=== PATIENT | female | born 1945 | race Caucasian/White ===

== ENCOUNTER 2017-08-21 19:05 | Inpatient (IN) | payer MEDICARE, MEDICAID ==
[~2017-08-21] VITALS: Ht 175.3 cm; Wt 85.7 kg
[2017-08-21] MEDS ORDERED: LOPE-155 PO (19:27)
[2017-08-21] MEDS ORDERED: LANTUS SQ (19:27)
[2017-08-21] MEDS ORDERED: METF500T PO (19:27)
[2017-08-21] MEDS ORDERED: GABA-530 PO (19:27)
[2017-08-21] MEDS ORDERED: CALC500T11 PO (19:27)
[2017-08-21] MEDS ORDERED: CARV-50 PO (19:27)
[2017-08-21] MEDS ORDERED: ATOR20TA PO (19:27)
[2017-08-21] MEDS ORDERED: ASPI-1265 PO (19:27)
[2017-08-21] MEDS ORDERED: FERR325T28 PO (19:27)
[2017-08-21 19:42] LABS: BASOPHILS % (AUTO) 0 % (0-1); EOSINOPHILS % (AUTO) 0 % (0-6); HEMATOCRIT 24.4 % (35.0-45.0); HEMOGLOBIN 8.3 g/dl (12.0-16.0); LYMPHOCYTES # (AUTO) 1.1 X10'3 (1.1-4.8); LYMPHOCYTES % (AUTO) 6.7 % (21-51); MEAN CORPUSCULAR HEMOGLOBIN 29.6 PG (27.0-31.0); MEAN CORPUSCULAR VOLUME 87.1 FL (78-98); MEAN PLATELET VOLUME 8.9 FL (7.4-10.4); MONOCYTES # (AUTO) 0.8 X10'3 (0-0.9); MONOCYTES % (AUTO) 5.1 % (2-12); NEUTROPHILS % (AUTO) 88.2 % (42-75); PLATELET COUNT 175 X10'3 (140-440); RED CELL DISTRIBUTION WIDTH 15.2 % (11.5-14.5); WHITE BLOOD COUNT 15.8 X10'3 (4.5-11.0)
[2017-08-21] MEDS ORDERED: ondansetron/PF 4mg/2ml inj IV PRN (19:50)
[2017-08-21] MEDS ORDERED: K, MAG and/or Phos replacement - Verify level? MC PRN (19:50)
[2017-08-21] MEDS ORDERED: acetaminophen 325mg tablet PO PRN ×2 (19:50)
[2017-08-21 20:01] LABS: INR 1.2 INR; PROTHROMBIN TIME 12.7 SECONDS (9.0-12.0)
[2017-08-21 20:04] LABS: ALANINE AMINOTRANSFERASE 298 U/L (12-78); ALBUMIN 3.3 G/DL (3.4-5.0); ALBUMIN/GLOBULIN RATIO 1.1 (1.1-1.5); ALKALINE PHOSPHATASE 52 IU/L (46-116); ANION GAP 18 (8-16); ASPARTATE AMINO TRANSFERASE 205 U/L (10-37); BILIRUBIN,TOTAL 1.6 MG/DL (0.1-1.0); BLOOD UREA NITROGEN 112 MG/DL (7-18); BUN/CREATININE RATIO 36.2 (6.6-38.0); CALCIUM 8.9 MG/DL (8.5-10.1); CHLORIDE 106 MMOL/L (99-107); CREATININE 3.09 MG/DL (0.40-0.90); MAGNESIUM 1.9 MG/DL (1.5-2.4); POTASSIUM 4.6 MMOL/L (3.5-5.1); SODIUM 143 MMOL/L (135-145); TOTAL CARBON DIOXIDE 19.5 MMOL/L (24-32); TOTAL PROTEIN 6.4 G/DL (6.4-8.2); eGFR 15 ML/MIN
[2017-08-21 20:07] LABS: GLUCOSE 500 MG/DL (70-104)
[2017-08-21 20:10] LABS: PARTIAL THROMBOPLASTIN TIME 83 SECONDS (22-32)
[2017-08-21] MEDS ORDERED: MESSAGE TO PHARMACY PO ONE (20:20)
[2017-08-21] MEDS ORDERED: glucagon, human recombinant 1mg kit SUBCUT PRN (20:20)
[2017-08-21] MEDS ORDERED: dextrose ORAL solution 15 GM/59 ML bottle PO PRN (20:20)
[2017-08-21] MEDS ORDERED: dextrose 50%-water 50ml dispensing syringe IV PRN ×3 (20:20→22:40)
[2017-08-21 21:00] VITALS: BP 126/45
[2017-08-21] MEDS: insulin glargine (Lantus) pen - multi-dose SQ SCH (21:00)
[2017-08-21] MEDS ORDERED: insulin glargine (Lantus) pen - multi-dose SQ SCH (21:00)
[2017-08-21 21:45] LABS: D-DIMER 7.37 MG/L FEU (0-0.50)
[2017-08-21 22:00] VITALS: BP 118/59
[2017-08-21] MEDS: atorvastatin 20mg tablet PO SCH (22:07)
[2017-08-21] MEDS ORDERED: insulin regular, human 100 UNIT in normal saline 100ml IV soln 99 ML IV SCH ×2 (22:40)
[2017-08-21 22:50] LABS: HEMOGLOBIN A1C 7.1 % (4.5-6.2)
[2017-08-21 23:00] VITALS: BP 117/65
[2017-08-21] MEDS ORDERED: insulin R INFUSION 1 ML IV ONE (23:19)
[2017-08-21] MEDS: gabapentin 100mg capsule PO SCH (23:43)
[2017-08-22] VITALS (26 sets, daily range): BP systolic 94–135; BP diastolic 48–70
[2017-08-22] MEDS ORDERED: insulin regular, human vial - multi-dose ONE (02:26)
[2017-08-22] MEDS: insulin Lispro (HumaLOG) vial - multi-dose SQ SCH ×3 (02:41→21:41)
[2017-08-22 02:42] LABS: BASOPHILS % (AUTO) 0.3 % (0-1); EOSINOPHILS % (AUTO) 0 % (0-6); HEMOGLOBIN 7.9 g/dl (12.0-16.0); LYMPHOCYTES # (AUTO) 0.9 X10'3 (1.1-4.8); LYMPHOCYTES % (AUTO) 7.6 % (21-51); MEAN CORPUSCULAR HEMOGLOBIN 29.6 PG (27.0-31.0); MEAN CORPUSCULAR HGB CONC 34.2 % (33.0-36.5); MEAN CORPUSCULAR VOLUME 86.8 FL (78-98); MEAN PLATELET VOLUME 8.6 FL (7.4-10.4); MONOCYTES # (AUTO) 0.7 X10'3 (0-0.9); MONOCYTES % (AUTO) 5.9 % (2-12); NEUTROPHILS # (AUTO) 10.7 X10'3 (1.8-7.7); NEUTROPHILS % (AUTO) 86.2 % (42-75); PLATELET COUNT 168 X10'3 (140-440); RED BLOOD COUNT 2.66 X10'6 (4.20-5.60); RED CELL DISTRIBUTION WIDTH 15.3 % (11.5-14.5); WHITE BLOOD COUNT 12.5 X10'3 (4.5-11.0)
[2017-08-22 03:09] LABS: INR 1.2 INR; PARTIAL THROMBOPLASTIN TIME 27 SECONDS (22-32); PROTHROMBIN TIME 12.4 SECONDS (9.0-12.0)
[2017-08-22 03:21] LABS: ALANINE AMINOTRANSFERASE 250 U/L (12-78); ALKALINE PHOSPHATASE 50 IU/L (46-116); ANION GAP 11 (8-16); ASPARTATE AMINO TRANSFERASE 123 U/L (10-37); BILIRUBIN,TOTAL 1.3 MG/DL (0.1-1.0); BLOOD UREA NITROGEN 112 MG/DL (7-18); BUN/CREATININE RATIO 38.6 (6.6-38.0); CHLORIDE 110 MMOL/L (99-107); GLUCOSE 345 MG/DL (70-104); PHOSPHORUS 4.8 MG/DL (2.3-4.5); POTASSIUM 3.8 MMOL/L (3.5-5.1); SODIUM 144 MMOL/L (135-145); TOTAL CARBON DIOXIDE 23.4 MMOL/L (24-32); eGFR 16 ML/MIN
[2017-08-22] MEDS: gabapentin 100mg capsule PO SCH ×2 (08:09→16:46)
[2017-08-22] MEDS: carvedilol 6.25mg tablet PO SCH ×2 (08:09→20:56)
[2017-08-22] MEDS: aspirin 81mg tab.chew PO SCH (08:09)
[2017-08-22] MEDS: ferrous sulfate 325mg tablet PO SCH ×2 (08:09→20:57)
[2017-08-22 08:40] LABS: % IRON SATURATION 24 % (11-46); IRON 46 UG/DL (49-151); TOTAL IRON BINDING CAPACITY 192 UG/DL (259-388)
[2017-08-22] MEDS ORDERED: levoFLOXACIN-Levaquin 250mg/D5 50 ML IV SCH (11:05)
[2017-08-22] MEDS: CefTRIAXone 2gm/D5W 50ml 50 ML IV SCH (11:15)
[2017-08-22 11:31] LABS: ABG HCO3 21.9 mmol/L (22.0-26.0); ABG OXYGEN SATURATION 90.4 % (95-98); ABG PCO2 (T) 33.5 mmHg (32.0-45.0); ABG PH (T) 7.433 (7.350-7.450); ABG PO2 (T) 57.9 mmHg (83-108); ALLEN'S TEST Positive; FCOHb 0.3 % (0.5-1.5); FMetHb 0.3 % (0.3-1.12); FO2Hb 89.9 % (94-100); PATIENT TEMPERATURE 36.7; TOTAL HEMOGLOBIN 8.8 G/dl (12.0-16.0)
[2017-08-22 12:51] LABS: COLOR,URINE YELLOW (Yellow); GLUCOSE, URINE NEGATIVE (Neg); KETONES,URINE NEGATIVE (Neg); LEUKOCYTE ESTERASE ,URINE MODERATE (Neg); NITRITES, URINE NEGATIVE (Neg); OCCULT BLOOD,URINE SMALL (Neg); PH,URINE 5.5 (4.8-8.0); PROTEIN,URINE 30 mg/dl (Neg); UROBILINOGEN,URINE 0.2 E.U/dL (0.2-1.0)
[2017-08-22 12:57] LABS: CLARITY,URINE CLOUDY (Clear); UA COLLECTION TYPE STRAIGHT CATH
[2017-08-22 12:58] LABS: TOTAL PROTEIN,URINE RANDOM 37.3 MG/DL
[2017-08-22 12:59] LABS: AMORPHOUS URATES 1+; BACTERIA,URINE 3+ /HPF (Neg); RBC,URINE 0-2 /HPF (0-2); SQUAMOUS EPITHELIAL CELL,UR FEW /LPF (FEW); TRANSITIONAL EPI CELLS,URINE FEW /HPF; WBC CLUMPS,URINE MODERATE /HPF (NEGATIVE)
[2017-08-22] MEDS: atorvastatin 20mg tablet PO SCH (20:56)
[2017-08-22] MEDS: heparin, porcine 5000 units/ml vial SQ SCH (20:57)
[2017-08-22] MEDS: insulin glargine (Lantus) pen - multi-dose SQ SCH (21:42)
[2017-08-23] VITALS (24 sets, daily range): BP systolic 103–142; BP diastolic 50–72
[2017-08-23 05:56] LABS: BASOPHILS % (AUTO) 0.4 % (0-1); EOSINOPHILS # (AUTO) 0.3 X10'3 (0-0.9); EOSINOPHILS % (AUTO) 2.9 % (0-6); HEMATOCRIT 27.4 % (35.0-45.0); HEMOGLOBIN 8.9 g/dl (12.0-16.0); MEAN CORPUSCULAR HEMOGLOBIN 27.8 PG (27.0-31.0); MEAN CORPUSCULAR HGB CONC 32.6 % (33.0-36.5); MEAN CORPUSCULAR VOLUME 85.3 FL (78-98); MEAN PLATELET VOLUME 8.3 FL (7.4-10.4); MONOCYTES # (AUTO) 0.6 X10'3 (0-0.9); MONOCYTES % (AUTO) 5.9 % (2-12); NEUTROPHILS # (AUTO) 8.4 X10'3 (1.8-7.7); NEUTROPHILS % (AUTO) 80.8 % (42-75); PLATELET COUNT 179 X10'3 (140-440); RED BLOOD COUNT 3.21 X10'6 (4.20-5.60); RED CELL DISTRIBUTION WIDTH 17.2 % (11.5-14.5); WHITE BLOOD COUNT 10.4 X10'3 (4.5-11.0)
[2017-08-23 06:29] LABS: ALANINE AMINOTRANSFERASE 247 U/L (12-78); ALBUMIN 2.7 G/DL (3.4-5.0); ALKALINE PHOSPHATASE 44 IU/L (46-116); ANION GAP 8 (8-16); ASPARTATE AMINO TRANSFERASE 87 U/L (10-37); BILIRUBIN,TOTAL 1.7 MG/DL (0.1-1.0); BLOOD UREA NITROGEN 85 MG/DL (7-18); BUN/CREATININE RATIO 43.4 (6.6-38.0); CALCIUM 8.3 MG/DL (8.5-10.1); CHLORIDE 114 MMOL/L (99-107); CREATININE 1.96 MG/DL (0.40-0.90); GLUCOSE 156 MG/DL (70-104); MAGNESIUM 1.9 MG/DL (1.5-2.4); PHOSPHORUS 3.1 MG/DL (2.3-4.5); POTASSIUM 3.6 MMOL/L (3.5-5.1); SODIUM 148 MMOL/L (135-145); TOTAL CARBON DIOXIDE 25.7 MMOL/L (24-32); TOTAL PROTEIN 5.4 G/DL (6.4-8.2); eGFR 25 ML/MIN
[2017-08-23] MEDS: aspirin 81mg tab.chew PO SCH (07:46)
[2017-08-23] MEDS: heparin, porcine 5000 units/ml vial SQ SCH ×2 (07:46→19:57)
[2017-08-23] MEDS: carvedilol 6.25mg tablet PO SCH ×2 (07:46→20:01)
[2017-08-23] MEDS: gabapentin 100mg capsule PO SCH ×4 (07:46→23:43)
[2017-08-23] MEDS: ferrous sulfate 325mg tablet PO SCH ×2 (07:46→19:56)
[2017-08-23] MEDS: CefTRIAXone 2gm/D5W 50ml 50 ML IV SCH (07:47)
[2017-08-23] MEDS: insulin Lispro (HumaLOG) vial - multi-dose SQ SCH ×4 (09:25→20:54)
[2017-08-23 14:01] LABS: UREA NITROGEN 24HR,URINE 21.5 GM/24HR (7-20)
[2017-08-23 14:06] LABS: HEP A AB, IGM Negative (Negative); HEP B CORE AB, IGM Negative (Negative); HEPATITIS C ANTIBODY <0.1 s/co ratio (0.0-0.9)
[2017-08-23] MEDS: clopidogrel 75mg tablet PO SCH (14:24)
[2017-08-23] MEDS: lactobacillus rhamnosus 10,000 MMU CELLS/CAPSULE PO SCH (19:56)
[2017-08-23] MEDS: atorvastatin 20mg tablet PO SCH (20:47)
[2017-08-23] MEDS: insulin glargine (Lantus) pen - multi-dose SQ SCH (20:53)
[2017-08-24] VITALS (24 sets, daily range): BP systolic 101–136; BP diastolic 5–91
[2017-08-24 05:55] LABS: BASOPHILS % (AUTO) 0.2 % (0-1); EOSINOPHILS # (AUTO) 0.6 X10'3 (0-0.9); EOSINOPHILS % (AUTO) 6.4 % (0-6); HEMATOCRIT 28.4 % (35.0-45.0); HEMOGLOBIN 9.5 g/dl (12.0-16.0); LYMPHOCYTES # (AUTO) 1.3 X10'3 (1.1-4.8); LYMPHOCYTES % (AUTO) 13.4 % (21-51); MEAN CORPUSCULAR HEMOGLOBIN 28.5 PG (27.0-31.0); MEAN CORPUSCULAR HGB CONC 33.5 % (33.0-36.5); MEAN CORPUSCULAR VOLUME 84.9 FL (78-98); MEAN PLATELET VOLUME 8.6 FL (7.4-10.4); MONOCYTES # (AUTO) 0.6 X10'3 (0-0.9); MONOCYTES % (AUTO) 6.5 % (2-12); NEUTROPHILS # (AUTO) 7.3 X10'3 (1.8-7.7); NEUTROPHILS % (AUTO) 73.5 % (42-75); PLATELET COUNT 194 X10'3 (140-440); RED BLOOD COUNT 3.35 X10'6 (4.20-5.60); WHITE BLOOD COUNT 9.9 X10'3 (4.5-11.0)
[2017-08-24 06:48] LABS: ALANINE AMINOTRANSFERASE 193 U/L (12-78); ALBUMIN 2.7 G/DL (3.4-5.0); ALBUMIN/GLOBULIN RATIO 0.9 (1.1-1.5); ALKALINE PHOSPHATASE 47 IU/L (46-116); ANION GAP 11 (8-16); ASPARTATE AMINO TRANSFERASE 53 U/L (10-37); BILIRUBIN,TOTAL 1.3 MG/DL (0.1-1.0); BLOOD UREA NITROGEN 66 MG/DL (7-18); BUN/CREATININE RATIO 41.3 (6.6-38.0); CALCIUM 8.1 MG/DL (8.5-10.1); CHLORIDE 113 MMOL/L (99-107); GLUCOSE 104 MG/DL (70-104); MAGNESIUM 1.8 MG/DL (1.5-2.4); PHOSPHORUS 2.8 MG/DL (2.3-4.5); POTASSIUM 3.7 MMOL/L (3.5-5.1); SODIUM 149 MMOL/L (135-145); TOTAL CARBON DIOXIDE 24.7 MMOL/L (24-32); TOTAL PROTEIN 5.6 G/DL (6.4-8.2); eGFR 32 ML/MIN
[2017-08-24] MEDS: ferrous sulfate 325mg tablet PO SCH ×2 (07:53→20:53)
[2017-08-24] MEDS: aspirin 81mg tab.chew PO SCH (07:53)
[2017-08-24] MEDS: CefTRIAXone 2gm/D5W 50ml 50 ML IV SCH (07:53)
[2017-08-24] MEDS: gabapentin 100mg capsule PO SCH ×3 (07:53→23:30)
[2017-08-24] MEDS: carvedilol 6.25mg tablet PO SCH ×2 (07:53→20:52)
[2017-08-24] MEDS: clopidogrel 75mg tablet PO SCH (07:53)
[2017-08-24] MEDS: lactobacillus rhamnosus 10,000 MMU CELLS/CAPSULE PO SCH ×2 (07:53→20:52)
[2017-08-24] MEDS: heparin, porcine 5000 units/ml vial SQ SCH ×2 (07:54→20:53)
[2017-08-24] MEDS: insulin Lispro (HumaLOG) vial - multi-dose SQ SCH ×2 (08:39→13:09)
[2017-08-24] MEDS ORDERED: furosemide 20MG tablet PO ONE (09:05)
[2017-08-24] MEDS ORDERED: levoFLOXACIN 250mg tablet PO SCH ×2 (11:00)
[2017-08-24] MEDS: atorvastatin 20mg tablet PO SCH (20:53)
[2017-08-24] MEDS: insulin glargine (Lantus) pen - multi-dose SQ SCH (21:26)
[2017-08-25] VITALS (15 sets, daily range): BP systolic 101–135; BP diastolic 55–76
[2017-08-25 05:44] LABS: BASOPHILS % (AUTO) 0.3 % (0-1); EOSINOPHILS # (AUTO) 0.6 X10'3 (0-0.9); EOSINOPHILS % (AUTO) 6.6 % (0-6); HEMATOCRIT 28.4 % (35.0-45.0); HEMOGLOBIN 9.6 g/dl (12.0-16.0); LYMPHOCYTES # (AUTO) 1.3 X10'3 (1.1-4.8); LYMPHOCYTES % (AUTO) 14.9 % (21-51); MEAN CORPUSCULAR HEMOGLOBIN 28.4 PG (27.0-31.0); MEAN CORPUSCULAR HGB CONC 33.7 % (33.0-36.5); MEAN CORPUSCULAR VOLUME 84.4 FL (78-98); MEAN PLATELET VOLUME 8.2 FL (7.4-10.4); MONOCYTES # (AUTO) 0.8 X10'3 (0-0.9); NEUTROPHILS # (AUTO) 6.2 X10'3 (1.8-7.7); NEUTROPHILS % (AUTO) 69.2 % (42-75); PLATELET COUNT 185 X10'3 (140-440); RED BLOOD COUNT 3.37 X10'6 (4.20-5.60); RED CELL DISTRIBUTION WIDTH 16.4 % (11.5-14.5); WHITE BLOOD COUNT 8.9 X10'3 (4.5-11.0)
[2017-08-25 06:02] LABS: ALANINE AMINOTRANSFERASE 122 U/L (12-78); ALBUMIN 2.4 G/DL (3.4-5.0); ALBUMIN/GLOBULIN RATIO 0.9 (1.1-1.5); ALKALINE PHOSPHATASE 47 IU/L (46-116); ANION GAP 9 (8-16); ASPARTATE AMINO TRANSFERASE 27 U/L (10-37); BLOOD UREA NITROGEN 49 MG/DL (7-18); BUN/CREATININE RATIO 32.9 (6.6-38.0); CALCIUM 7.8 MG/DL (8.5-10.1); CHLORIDE 111 MMOL/L (99-107); CREATININE 1.49 MG/DL (0.40-0.90); GLUCOSE 186 MG/DL (70-104); MAGNESIUM 1.7 MG/DL (1.5-2.4); PHOSPHORUS 3.1 MG/DL (2.3-4.5); POTASSIUM 3.6 MMOL/L (3.5-5.1); SODIUM 146 MMOL/L (135-145); TOTAL CARBON DIOXIDE 26.1 MMOL/L (24-32); TOTAL PROTEIN 5.2 G/DL (6.4-8.2); eGFR 34 ML/MIN
[2017-08-25] MEDS: carvedilol 6.25mg tablet PO SCH ×2 (07:44→20:44)
[2017-08-25] MEDS: gabapentin 100mg capsule PO SCH ×2 (07:45→16:39)
[2017-08-25] MEDS: lactobacillus rhamnosus 10,000 MMU CELLS/CAPSULE PO SCH ×2 (07:45→20:45)
[2017-08-25] MEDS: CefTRIAXone 2gm/D5W 50ml 50 ML IV SCH (07:45)
[2017-08-25] MEDS: ferrous sulfate 325mg tablet PO SCH ×2 (07:45→20:45)
[2017-08-25] MEDS: clopidogrel 75mg tablet PO SCH (07:45)
[2017-08-25] MEDS: aspirin 81mg tab.chew PO SCH (07:45)
[2017-08-25] MEDS: heparin, porcine 5000 units/ml vial SQ SCH ×2 (07:46→20:45)
[2017-08-25] MEDS: insulin Lispro (HumaLOG) vial - multi-dose SQ SCH ×2 (08:35→13:33)
[2017-08-25] MEDS: cephalexin 500mg capsule PO SCH (16:39)
[2017-08-25] MEDS: dextrose ORAL solution 15 GM/59 ML bottle PO PRN (17:35)
[2017-08-25] MEDS: atorvastatin 20mg tablet PO SCH (22:04)
[2017-08-25] MEDS: insulin glargine (Lantus) pen - multi-dose SQ SCH (22:10)
[2017-08-26] MEDS: gabapentin 100mg capsule PO SCH ×3 (00:19→15:54)
[2017-08-26] MEDS: cephalexin 500mg capsule PO SCH ×3 (00:19→15:54)
[2017-08-26 02:00] VITALS: BP 149/73
[2017-08-26 05:45] LABS: BASOPHILS % (AUTO) 0.4 % (0-1); EOSINOPHILS # (AUTO) 0.5 X10'3 (0-0.9); EOSINOPHILS % (AUTO) 5.8 % (0-6); HEMATOCRIT 28.3 % (35.0-45.0); HEMOGLOBIN 9.4 g/dl (12.0-16.0); LYMPHOCYTES # (AUTO) 1.5 X10'3 (1.1-4.8); LYMPHOCYTES % (AUTO) 16.2 % (21-51); MEAN CORPUSCULAR HEMOGLOBIN 28.3 PG (27.0-31.0); MEAN CORPUSCULAR HGB CONC 33.4 % (33.0-36.5); MEAN CORPUSCULAR VOLUME 84.8 FL (78-98); MEAN PLATELET VOLUME 7.9 FL (7.4-10.4); MONOCYTES # (AUTO) 0.9 X10'3 (0-0.9); MONOCYTES % (AUTO) 9.5 % (2-12); NEUTROPHILS # (AUTO) 6.3 X10'3 (1.8-7.7); NEUTROPHILS % (AUTO) 68.1 % (42-75); PLATELET COUNT 176 X10'3 (140-440); RED BLOOD COUNT 3.34 X10'6 (4.20-5.60); RED CELL DISTRIBUTION WIDTH 16.1 % (11.5-14.5); WHITE BLOOD COUNT 9.3 X10'3 (4.5-11.0)
[2017-08-26 06:01] LABS: ALANINE AMINOTRANSFERASE 91 U/L (12-78); ALBUMIN 2.4 G/DL (3.4-5.0); ALBUMIN/GLOBULIN RATIO 0.8 (1.1-1.5); ALKALINE PHOSPHATASE 49 IU/L (46-116); ANION GAP 9 (8-16); ASPARTATE AMINO TRANSFERASE 19 U/L (10-37); BILIRUBIN,TOTAL 0.7 MG/DL (0.1-1.0); BLOOD UREA NITROGEN 41 MG/DL (7-18); BUN/CREATININE RATIO 29.1 (6.6-38.0); CALCIUM 8.2 MG/DL (8.5-10.1); CHLORIDE 110 MMOL/L (99-107); CREATININE 1.41 MG/DL (0.40-0.90); GLUCOSE 164 MG/DL (70-104); MAGNESIUM 1.8 MG/DL (1.5-2.4); PHOSPHORUS 3.2 MG/DL (2.3-4.5); POTASSIUM 3.8 MMOL/L (3.5-5.1); SODIUM 144 MMOL/L (135-145); TOTAL CARBON DIOXIDE 25.3 MMOL/L (24-32); TOTAL PROTEIN 5.4 G/DL (6.4-8.2); eGFR 37 ML/MIN
[2017-08-26 06:44] VITALS: BP 139/70
[2017-08-26] MEDS: clopidogrel 75mg tablet PO SCH (07:51)
[2017-08-26] MEDS: carvedilol 6.25mg tablet PO SCH ×2 (07:51→20:53)
[2017-08-26] MEDS: heparin, porcine 5000 units/ml vial SQ SCH ×2 (07:51→20:54)
[2017-08-26] MEDS: lactobacillus rhamnosus 10,000 MMU CELLS/CAPSULE PO SCH ×2 (07:51→20:53)
[2017-08-26] MEDS: ferrous sulfate 325mg tablet PO SCH ×2 (07:51→20:53)
[2017-08-26] MEDS: aspirin 81mg tab.chew PO SCH (07:51)
[2017-08-26] MEDS: insulin Lispro (HumaLOG) vial - multi-dose SQ SCH ×3 (07:59→19:15)
[2017-08-26 11:00] VITALS: BP 132/66
[2017-08-26 15:00] VITALS: BP 118/56
[2017-08-26 18:00] VITALS: BP 146/64
[2017-08-26] MEDS: sodium chloride 0.45% 1,000 ML IV SCH (20:20)
[2017-08-26] MEDS: atorvastatin 20mg tablet PO SCH (20:53)
[2017-08-26] MEDS: insulin glargine (Lantus) pen - multi-dose SQ SCH (21:18)
[2017-08-27] VITALS (10 sets, daily range): BP systolic 124–146; BP diastolic 52–70
[2017-08-27] MEDS: gabapentin 100mg capsule PO SCH ×3 (01:08→16:04)
[2017-08-27] MEDS: cephalexin 500mg capsule PO SCH ×3 (01:09→16:04)
[2017-08-27 05:24] LABS: BASOPHILS % (AUTO) 0.3 % (0-1); EOSINOPHILS # (AUTO) 0.5 X10'3 (0-0.9); EOSINOPHILS % (AUTO) 5.2 % (0-6); HEMATOCRIT 27.4 % (35.0-45.0); HEMOGLOBIN 9.2 g/dl (12.0-16.0); LYMPHOCYTES # (AUTO) 1.4 X10'3 (1.1-4.8); LYMPHOCYTES % (AUTO) 14.1 % (21-51); MEAN CORPUSCULAR HEMOGLOBIN 28.3 PG (27.0-31.0); MEAN CORPUSCULAR HGB CONC 33.7 % (33.0-36.5); MEAN CORPUSCULAR VOLUME 84.2 FL (78-98); MONOCYTES # (AUTO) 0.9 X10'3 (0-0.9); MONOCYTES % (AUTO) 9.2 % (2-12); NEUTROPHILS # (AUTO) 7.1 X10'3 (1.8-7.7); NEUTROPHILS % (AUTO) 71.2 % (42-75); PLATELET COUNT 180 X10'3 (140-440); RED BLOOD COUNT 3.25 X10'6 (4.20-5.60); RED CELL DISTRIBUTION WIDTH 16.3 % (11.5-14.5)
[2017-08-27 05:57] LABS: ALANINE AMINOTRANSFERASE 77 U/L (12-78); ALBUMIN 2.6 G/DL (3.4-5.0); ALBUMIN/GLOBULIN RATIO 0.9 (1.1-1.5); ALKALINE PHOSPHATASE 45 IU/L (46-116); ANION GAP 9 (8-16); ASPARTATE AMINO TRANSFERASE 23 U/L (10-37); BILIRUBIN,TOTAL 0.8 MG/DL (0.1-1.0); BLOOD UREA NITROGEN 37 MG/DL (7-18); BUN/CREATININE RATIO 26.1 (6.6-38.0); CALCIUM 8.3 MG/DL (8.5-10.1); CHLORIDE 109 MMOL/L (99-107); CREATININE 1.42 MG/DL (0.40-0.90); GLUCOSE 140 MG/DL (70-104); MAGNESIUM 1.7 MG/DL (1.5-2.4); PHOSPHORUS 3.4 MG/DL (2.3-4.5); POTASSIUM 3.7 MMOL/L (3.5-5.1); SODIUM 143 MMOL/L (135-145); TOTAL CARBON DIOXIDE 25.5 MMOL/L (24-32); TOTAL PROTEIN 5.4 G/DL (6.4-8.2); eGFR 36 ML/MIN
[2017-08-27] MEDS: lactobacillus rhamnosus 10,000 MMU CELLS/CAPSULE PO SCH ×2 (07:54→20:48)
[2017-08-27] MEDS: ferrous sulfate 325mg tablet PO SCH ×2 (07:54→20:48)
[2017-08-27] MEDS: carvedilol 6.25mg tablet PO SCH ×2 (07:54→20:48)
[2017-08-27] MEDS: sodium chloride 0.45% 1,000 ML IV SCH (07:58)
[2017-08-27] MEDS: heparin, porcine 5000 units/ml vial SQ SCH ×2 (08:00→20:47)
[2017-08-27] MEDS: aspirin 81mg tab.chew PO SCH (08:00)
[2017-08-27] MEDS: clopidogrel 75mg tablet PO SCH (08:00)
[2017-08-27] MEDS: insulin Lispro (HumaLOG) vial - multi-dose SQ SCH (10:42)
[2017-08-27] MEDS ORDERED: fentaNYL/PF 50MCG/1 ML 2ML syringe ONE (13:01)
[2017-08-27] MEDS ORDERED: LIDOcaine 1% w/EPI 1:100,000 30ml vial (MDV) ONE (13:01)
[2017-08-27] MEDS ORDERED: midazolam 2 mg/2 ml injection ONE (13:01)
[2017-08-27] MEDS ORDERED: iohexol 350 MG/ML 50ML vial IV ONE (13:02)
[2017-08-27] MEDS ORDERED: iohexol 350MG/ML 100ml bottle IV ONE (13:02)
[2017-08-27 14:21] LABS: ISTAT Hct MIX 24 %PCV (35-48); ISTAT O2 SATURATION MIX VENOUS 58 % (60-80); ISTAT SOURCE MIX
[2017-08-27 14:21] LABS: ISTAT HGB ART 7.8 g/dl (12.0-16.0); ISTAT Hct ART 23 %PCV (35-48); ISTAT O2 SATURATION ARTERIAL 90 % (95-98); ISTAT SOURCE ART
[2017-08-27] MEDS ORDERED: proCHLORperazine 10 MG/2 ml inj IV PRN (15:15)
[2017-08-27] MEDS ORDERED: nitroGLYCERIN 0.4mg SUBLingual tab SL PRN (15:15)
[2017-08-27] MEDS ORDERED: OXAZEpam 15mg capsule PO PRN (15:15)
[2017-08-27] MEDS ORDERED: sodium chloride 0.45% 1,000 ML IV ONE (15:15)
[2017-08-27 17:46] LABS: BASOPHILS % (AUTO) 0.3 % (0-1); EOSINOPHILS # (AUTO) 0.5 X10'3 (0-0.9); EOSINOPHILS % (AUTO) 4.4 % (0-6); HEMATOCRIT 31.4 % (35.0-45.0); HEMOGLOBIN 10.5 g/dl (12.0-16.0); LYMPHOCYTES # (AUTO) 1.1 X10'3 (1.1-4.8); LYMPHOCYTES % (AUTO) 10.1 % (21-51); MEAN CORPUSCULAR HEMOGLOBIN 28.3 PG (27.0-31.0); MEAN CORPUSCULAR HGB CONC 33.5 % (33.0-36.5); MEAN CORPUSCULAR VOLUME 84.6 FL (78-98); MEAN PLATELET VOLUME 7.6 FL (7.4-10.4); MONOCYTES # (AUTO) 0.7 X10'3 (0-0.9); MONOCYTES % (AUTO) 6.9 % (2-12); NEUTROPHILS # (AUTO) 8.4 X10'3 (1.8-7.7); NEUTROPHILS % (AUTO) 78.3 % (42-75); PLATELET COUNT 222 X10'3 (140-440); RED BLOOD COUNT 3.71 X10'6 (4.20-5.60); RED CELL DISTRIBUTION WIDTH 16.6 % (11.5-14.5); WHITE BLOOD COUNT 10.7 X10'3 (4.5-11.0)
[2017-08-27] MEDS: atorvastatin 20mg tablet PO SCH (20:49)
[2017-08-27] MEDS: insulin glargine (Lantus) pen - multi-dose SQ SCH (22:02)
[2017-08-28] MEDS: gabapentin 100mg capsule PO SCH ×4 (00:41→23:28)
[2017-08-28] MEDS: cephalexin 500mg capsule PO SCH ×4 (00:41→23:28)
[2017-08-28 02:00] VITALS: BP 137/65
[2017-08-28 06:00] VITALS: BP 137/68
[2017-08-28 06:06] LABS: BASOPHILS % (AUTO) 0.4 % (0-1); EOSINOPHILS # (AUTO) 0.4 X10'3 (0-0.9); EOSINOPHILS % (AUTO) 4.3 % (0-6); HEMATOCRIT 26.9 % (35.0-45.0); LYMPHOCYTES # (AUTO) 1.2 X10'3 (1.1-4.8); LYMPHOCYTES % (AUTO) 13.2 % (21-51); MEAN CORPUSCULAR HEMOGLOBIN 28.4 PG (27.0-31.0); MEAN CORPUSCULAR HGB CONC 33.6 % (33.0-36.5); MEAN CORPUSCULAR VOLUME 84.5 FL (78-98); MEAN PLATELET VOLUME 7.6 FL (7.4-10.4); MONOCYTES # (AUTO) 0.7 X10'3 (0-0.9); MONOCYTES % (AUTO) 7.8 % (2-12); NEUTROPHILS # (AUTO) 6.8 X10'3 (1.8-7.7); NEUTROPHILS % (AUTO) 74.3 % (42-75); PLATELET COUNT 195 X10'3 (140-440); RED BLOOD COUNT 3.18 X10'6 (4.20-5.60); WHITE BLOOD COUNT 9.2 X10'3 (4.5-11.0)
[2017-08-28 06:26] LABS: ALANINE AMINOTRANSFERASE 76 U/L (12-78); ALBUMIN 2.5 G/DL (3.4-5.0); ALKALINE PHOSPHATASE 49 IU/L (46-116); ANION GAP 8 (8-16); ASPARTATE AMINO TRANSFERASE 32 U/L (10-37); BLOOD UREA NITROGEN 31 MG/DL (7-18); BUN/CREATININE RATIO 22.6 (6.6-38.0); CALCIUM 8.1 MG/DL (8.5-10.1); CHLORIDE 108 MMOL/L (99-107); CREATININE 1.37 MG/DL (0.40-0.90); GLUCOSE 116 MG/DL (70-104); MAGNESIUM 1.7 MG/DL (1.5-2.4); PHOSPHORUS 3.9 MG/DL (2.3-4.5); POTASSIUM 3.6 MMOL/L (3.5-5.1); SODIUM 142 MMOL/L (135-145); TOTAL CARBON DIOXIDE 25.9 MMOL/L (24-32); TOTAL PROTEIN 5.1 G/DL (6.4-8.2); eGFR 38 ML/MIN
[2017-08-28] MEDS: ferrous sulfate 325mg tablet PO SCH ×2 (07:07→19:58)
[2017-08-28] MEDS: lactobacillus rhamnosus 10,000 MMU CELLS/CAPSULE PO SCH ×2 (07:08→19:58)
[2017-08-28] MEDS: carvedilol 6.25mg tablet PO SCH ×2 (07:08→20:03)
[2017-08-28] MEDS: aspirin 81mg tab.chew PO SCH (07:08)
[2017-08-28] MEDS: heparin, porcine 5000 units/ml vial SQ SCH ×2 (07:09→19:59)
[2017-08-28] MEDS: insulin Lispro (HumaLOG) vial - multi-dose SQ SCH ×3 (09:25→18:45)
[2017-08-28] MEDS: sodium chloride 0.45% 1,000 ML IV SCH (09:40)
[2017-08-28 11:00] VITALS: BP 124/67
[2017-08-28 15:00] VITALS: BP 119/62
[2017-08-28 18:00] VITALS: BP 138/88
[2017-08-28] MEDS: atorvastatin 20mg tablet PO SCH (19:58)
[2017-08-28 22:00] VITALS: BP 119/61
[2017-08-28] MEDS: insulin glargine (Lantus) pen - multi-dose SQ SCH (23:34)
[2017-08-29] VITALS (7 sets, daily range): BP systolic 105–130; BP diastolic 53–100
[2017-08-29 05:44] LABS: BASOPHILS % (AUTO) 0.5 % (0-1); EOSINOPHILS # (AUTO) 0.6 X10'3 (0-0.9); EOSINOPHILS % (AUTO) 7.2 % (0-6); HEMATOCRIT 24.7 % (35.0-45.0); HEMOGLOBIN 8.2 g/dl (12.0-16.0); LYMPHOCYTES # (AUTO) 1.5 X10'3 (1.1-4.8); MEAN CORPUSCULAR HGB CONC 33.3 % (33.0-36.5); MEAN CORPUSCULAR VOLUME 83.9 FL (78-98); MEAN PLATELET VOLUME 8.1 FL (7.4-10.4); MONOCYTES # (AUTO) 0.9 X10'3 (0-0.9); MONOCYTES % (AUTO) 11.3 % (2-12); PLATELET COUNT 174 X10'3 (140-440); RED BLOOD COUNT 2.94 X10'6 (4.20-5.60); RED CELL DISTRIBUTION WIDTH 16.1 % (11.5-14.5); WHITE BLOOD COUNT 8.1 X10'3 (4.5-11.0)
[2017-08-29 06:13] LABS: ALANINE AMINOTRANSFERASE 64 U/L (12-78); ALBUMIN 2.5 G/DL (3.4-5.0); ALBUMIN/GLOBULIN RATIO 0.9 (1.1-1.5); ALKALINE PHOSPHATASE 47 IU/L (46-116); ANION GAP 6 (8-16); ASPARTATE AMINO TRANSFERASE 36 U/L (10-37); BILIRUBIN,TOTAL 0.7 MG/DL (0.1-1.0); BLOOD UREA NITROGEN 36 MG/DL (7-18); BUN/CREATININE RATIO 23.2 (6.6-38.0); CALCIUM 8.2 MG/DL (8.5-10.1); CHLORIDE 110 MMOL/L (99-107); CREATININE 1.55 MG/DL (0.40-0.90); GLUCOSE 65 MG/DL (70-104); MAGNESIUM 1.9 MG/DL (1.5-2.4); PHOSPHORUS 4.2 MG/DL (2.3-4.5); POTASSIUM 3.9 MMOL/L (3.5-5.1); SODIUM 143 MMOL/L (135-145); TOTAL CARBON DIOXIDE 27.4 MMOL/L (24-32); TOTAL PROTEIN 5.3 G/DL (6.4-8.2); eGFR 33 ML/MIN
[2017-08-29] MEDS: lactobacillus rhamnosus 10,000 MMU CELLS/CAPSULE PO SCH ×2 (07:09→19:48)
[2017-08-29] MEDS: gabapentin 100mg capsule PO SCH ×2 (07:09→15:27)
[2017-08-29] MEDS: ferrous sulfate 325mg tablet PO SCH ×2 (07:09→19:48)
[2017-08-29] MEDS: aspirin 81mg tab.chew PO SCH (07:09)
[2017-08-29] MEDS: carvedilol 6.25mg tablet PO SCH ×2 (07:09→19:48)
[2017-08-29] MEDS: heparin, porcine 5000 units/ml vial SQ SCH ×2 (07:10→19:48)
[2017-08-29] MEDS: cephalexin 500mg capsule PO SCH ×2 (07:57→15:27)
[2017-08-29] MEDS: magnesium hydroxide 30ml (MOM) UD suspension PO PRN (11:47)
[2017-08-29] MEDS: insulin Lispro (HumaLOG) vial - multi-dose SQ SCH ×2 (13:05→20:16)
[2017-08-29] MEDS: atorvastatin 20mg tablet PO SCH (19:48)
[2017-08-29] MEDS: insulin glargine (Lantus) pen - multi-dose SQ SCH (21:00)
[2017-08-30] MEDS: gabapentin 100mg capsule PO SCH ×3 (00:21→15:46)
[2017-08-30] MEDS: cephalexin 500mg capsule PO SCH ×2 (00:21→07:50)
[2017-08-30 03:00] VITALS: BP 108/53
[2017-08-30 06:00] VITALS: BP 136/69
[2017-08-30 06:18] LABS: BASOPHILS # (AUTO) 0.1 X10'3 (0-0.2); BASOPHILS % (AUTO) 0.8 % (0-1); EOSINOPHILS # (AUTO) 0.5 X10'3 (0-0.9); EOSINOPHILS % (AUTO) 6.8 % (0-6); HEMATOCRIT 24.9 % (35.0-45.0); HEMOGLOBIN 8.5 g/dl (12.0-16.0); LYMPHOCYTES # (AUTO) 1.5 X10'3 (1.1-4.8); LYMPHOCYTES % (AUTO) 21.6 % (21-51); MEAN CORPUSCULAR HEMOGLOBIN 28.4 PG (27.0-31.0); MEAN CORPUSCULAR VOLUME 83.6 FL (78-98); MEAN PLATELET VOLUME 7.9 FL (7.4-10.4); MONOCYTES # (AUTO) 0.7 X10'3 (0-0.9); MONOCYTES % (AUTO) 10.2 % (2-12); NEUTROPHILS # (AUTO) 4.2 X10'3 (1.8-7.7); NEUTROPHILS % (AUTO) 60.6 % (42-75); PLATELET COUNT 184 X10'3 (140-440); RED BLOOD COUNT 2.98 X10'6 (4.20-5.60); WHITE BLOOD COUNT 6.9 X10'3 (4.5-11.0)
[2017-08-30 06:36] LABS: ALANINE AMINOTRANSFERASE 62 U/L (12-78); ALBUMIN 2.7 G/DL (3.4-5.0); ALKALINE PHOSPHATASE 45 IU/L (46-116); ANION GAP 7 (8-16); ASPARTATE AMINO TRANSFERASE 27 U/L (10-37); BILIRUBIN,TOTAL 0.7 MG/DL (0.1-1.0); BLOOD UREA NITROGEN 39 MG/DL (7-18); BUN/CREATININE RATIO 22.7 (6.6-38.0); CALCIUM 8.5 MG/DL (8.5-10.1); CHLORIDE 108 MMOL/L (99-107); CREATININE 1.72 MG/DL (0.40-0.90); GLUCOSE 123 MG/DL (70-104); SODIUM 142 MMOL/L (135-145); TOTAL CARBON DIOXIDE 27.1 MMOL/L (24-32); TOTAL PROTEIN 5.5 G/DL (6.4-8.2); eGFR 29 ML/MIN
[2017-08-30] MEDS: ferrous sulfate 325mg tablet PO SCH ×2 (07:50→21:00)
[2017-08-30] MEDS: aspirin 81mg tab.chew PO SCH (07:50)
[2017-08-30] MEDS: magnesium hydroxide 30ml (MOM) UD suspension PO PRN (07:50)
[2017-08-30] MEDS: lactobacillus rhamnosus 10,000 MMU CELLS/CAPSULE PO SCH ×2 (07:50→21:00)
[2017-08-30] MEDS: heparin, porcine 5000 units/ml vial SQ SCH ×2 (07:51→21:02)
[2017-08-30] MEDS: carvedilol 6.25mg tablet PO SCH ×2 (07:58→21:00)
[2017-08-30] MEDS: insulin Lispro (HumaLOG) vial - multi-dose SQ SCH ×3 (08:05→18:56)
[2017-08-30 11:00] VITALS: BP 116/60
[2017-08-30 15:00] VITALS: BP 123/64
[2017-08-30 18:00] VITALS: BP 115/67
[2017-08-30] MEDS: atorvastatin 20mg tablet PO SCH (21:00)
[2017-08-30 22:00] VITALS: BP 119/59
[2017-08-30] MEDS: insulin glargine (Lantus) pen - multi-dose SQ SCH (22:03)
[2017-08-31] MEDS: gabapentin 100mg capsule PO SCH ×3 (00:45→16:42)
[2017-08-31 02:00] VITALS: BP 122/59
[2017-08-31 05:18] LABS: BASOPHILS % (AUTO) 0.6 % (0-1); EOSINOPHILS # (AUTO) 0.4 X10'3 (0-0.9); HEMATOCRIT 24.2 % (35.0-45.0); HEMOGLOBIN 8.2 g/dl (12.0-16.0); LYMPHOCYTES # (AUTO) 1.3 X10'3 (1.1-4.8); LYMPHOCYTES % (AUTO) 20.2 % (21-51); MEAN CORPUSCULAR HEMOGLOBIN 28.5 PG (27.0-31.0); MEAN CORPUSCULAR HGB CONC 33.8 % (33.0-36.5); MEAN CORPUSCULAR VOLUME 84.3 FL (78-98); MONOCYTES # (AUTO) 0.6 X10'3 (0-0.9); MONOCYTES % (AUTO) 9.4 % (2-12); NEUTROPHILS # (AUTO) 4.1 X10'3 (1.8-7.7); NEUTROPHILS % (AUTO) 63.8 % (42-75); PLATELET COUNT 191 X10'3 (140-440); RED BLOOD COUNT 2.87 X10'6 (4.20-5.60); RED CELL DISTRIBUTION WIDTH 15.7 % (11.5-14.5); WHITE BLOOD COUNT 6.4 X10'3 (4.5-11.0)
[2017-08-31 05:39] LABS: ALANINE AMINOTRANSFERASE 72 U/L (12-78); ALBUMIN 2.8 G/DL (3.4-5.0); ALKALINE PHOSPHATASE 52 IU/L (46-116); ANION GAP 4 (8-16); ASPARTATE AMINO TRANSFERASE 37 U/L (10-37); BILIRUBIN,TOTAL 0.7 MG/DL (0.1-1.0); BLOOD UREA NITROGEN 42 MG/DL (7-18); BUN/CREATININE RATIO 26.9 (6.6-38.0); CALCIUM 8.8 MG/DL (8.5-10.1); CHLORIDE 109 MMOL/L (99-107); CREATININE 1.56 MG/DL (0.40-0.90); GLUCOSE 81 MG/DL (70-104); MAGNESIUM 2.2 MG/DL (1.5-2.4); PHOSPHORUS 4.2 MG/DL (2.3-4.5); POTASSIUM 4.3 MMOL/L (3.5-5.1); SODIUM 141 MMOL/L (135-145); TOTAL CARBON DIOXIDE 27.7 MMOL/L (24-32); TOTAL PROTEIN 5.6 G/DL (6.4-8.2); eGFR 33 ML/MIN
[2017-08-31 06:00] VITALS: BP 130/67
[2017-08-31] MEDS: heparin, porcine 5000 units/ml vial SQ SCH ×2 (07:24→20:45)
[2017-08-31] MEDS: carvedilol 6.25mg tablet PO SCH ×2 (07:24→20:43)
[2017-08-31] MEDS: ferrous sulfate 325mg tablet PO SCH ×2 (07:24→20:43)
[2017-08-31] MEDS: lactobacillus rhamnosus 10,000 MMU CELLS/CAPSULE PO SCH ×2 (07:24→20:42)
[2017-08-31] MEDS: aspirin 81mg tab.chew PO SCH (07:24)
[2017-08-31 11:00] VITALS: BP 110/71
[2017-08-31 15:00] VITALS: BP 128/63
[2017-08-31 19:00] VITALS: BP 109/59
[2017-08-31] MEDS: insulin Lispro (HumaLOG) vial - multi-dose SQ SCH (19:20)
[2017-08-31] MEDS: atorvastatin 20mg tablet PO SCH (20:43)
[2017-08-31] MEDS: insulin glargine (Lantus) pen - multi-dose SQ SCH (21:36)
[2017-08-31 23:00] VITALS: BP 133/71
[2017-09-01] MEDS: gabapentin 100mg capsule PO SCH ×3 (00:05→15:59)
[2017-09-01 03:00] VITALS: BP 117/63
[2017-09-01 05:30] VITALS: BP 138/69
[2017-09-01 06:01] LABS: BASOPHILS # (AUTO) 0.1 X10'3 (0-0.2); BASOPHILS % (AUTO) 0.7 % (0-1); EOSINOPHILS # (AUTO) 0.4 X10'3 (0-0.9); EOSINOPHILS % (AUTO) 4.1 % (0-6); HEMATOCRIT 29.4 % (35.0-45.0); HEMOGLOBIN 9.9 g/dl (12.0-16.0); LYMPHOCYTES # (AUTO) 1.1 X10'3 (1.1-4.8); LYMPHOCYTES % (AUTO) 11.9 % (21-51); MEAN CORPUSCULAR HEMOGLOBIN 28.6 PG (27.0-31.0); MEAN CORPUSCULAR HGB CONC 33.6 % (33.0-36.5); MEAN CORPUSCULAR VOLUME 85.3 FL (78-98); MEAN PLATELET VOLUME 9.2 FL (7.4-10.4); MONOCYTES # (AUTO) 0.4 X10'3 (0-0.9); MONOCYTES % (AUTO) 4.9 % (2-12); NEUTROPHILS % (AUTO) 78.4 % (42-75); PLATELET COUNT 232 X10'3 (140-440); RED BLOOD COUNT 3.45 X10'6 (4.20-5.60); RED CELL DISTRIBUTION WIDTH 16.1 % (11.5-14.5); WHITE BLOOD COUNT 8.9 X10'3 (4.5-11.0)
[2017-09-01 06:17] LABS: ALANINE AMINOTRANSFERASE 89 U/L (12-78); ALBUMIN 3.4 G/DL (3.4-5.0); ALKALINE PHOSPHATASE 62 IU/L (46-116); ANION GAP 5 (8-16); ASPARTATE AMINO TRANSFERASE 44 U/L (10-37); BILIRUBIN,TOTAL 0.9 MG/DL (0.1-1.0); BLOOD UREA NITROGEN 38 MG/DL (7-18); BUN/CREATININE RATIO 25.9 (6.6-38.0); CALCIUM 9.2 MG/DL (8.5-10.1); CHLORIDE 107 MMOL/L (99-107); CREATININE 1.47 MG/DL (0.40-0.90); GLUCOSE 65 MG/DL (70-104); MAGNESIUM 2.3 MG/DL (1.5-2.4); PHOSPHORUS 4.8 MG/DL (2.3-4.5); POTASSIUM 4.2 MMOL/L (3.5-5.1); SODIUM 139 MMOL/L (135-145); TOTAL CARBON DIOXIDE 26.6 MMOL/L (24-32); TOTAL PROTEIN 6.7 G/DL (6.4-8.2); eGFR 35 ML/MIN
[2017-09-01] MEDS: lactobacillus rhamnosus 10,000 MMU CELLS/CAPSULE PO SCH ×2 (08:51→20:50)
[2017-09-01] MEDS: carvedilol 6.25mg tablet PO SCH ×2 (08:51→20:50)
[2017-09-01] MEDS: ferrous sulfate 325mg tablet PO SCH ×2 (08:51→20:50)
[2017-09-01] MEDS: aspirin 81mg tab.chew PO SCH (08:51)
[2017-09-01] MEDS: heparin, porcine 5000 units/ml vial SQ SCH ×2 (08:51→20:50)
[2017-09-01] MEDS: insulin Lispro (HumaLOG) vial - multi-dose SQ SCH ×2 (10:11→14:14)
[2017-09-01 11:00] VITALS: BP 132/65
[2017-09-01 15:00] VITALS: BP 133/63
[2017-09-01] MEDS: dextrose ORAL solution 15 GM/59 ML bottle PO PRN (17:09)
[2017-09-01 19:00] VITALS: BP 145/62
[2017-09-01] MEDS: atorvastatin 20mg tablet PO SCH (20:51)
[2017-09-01] MEDS: insulin glargine (Lantus) pen - multi-dose SQ SCH (21:45)
[2017-09-01 23:00] VITALS: BP 126/61
[2017-09-02] MEDS: gabapentin 100mg capsule PO SCH ×3 (00:15→17:53)
[2017-09-02 03:00] VITALS: BP 127/66
[2017-09-02 05:17] LABS: BASOPHILS # (AUTO) 0.1 X10'3 (0-0.2); EOSINOPHILS # (AUTO) 0.5 X10'3 (0-0.9); EOSINOPHILS % (AUTO) 6.6 % (0-6); HEMATOCRIT 24.7 % (35.0-45.0); HEMOGLOBIN 8.3 g/dl (12.0-16.0); LYMPHOCYTES # (AUTO) 1.6 X10'3 (1.1-4.8); LYMPHOCYTES % (AUTO) 22.7 % (21-51); MEAN CORPUSCULAR HEMOGLOBIN 28.2 PG (27.0-31.0); MEAN CORPUSCULAR HGB CONC 33.4 % (33.0-36.5); MEAN CORPUSCULAR VOLUME 84.7 FL (78-98); MEAN PLATELET VOLUME 8.3 FL (7.4-10.4); MONOCYTES # (AUTO) 0.6 X10'3 (0-0.9); MONOCYTES % (AUTO) 8.5 % (2-12); NEUTROPHILS # (AUTO) 4.3 X10'3 (1.8-7.7); NEUTROPHILS % (AUTO) 61.2 % (42-75); PLATELET COUNT 223 X10'3 (140-440); RED BLOOD COUNT 2.92 X10'6 (4.20-5.60); RED CELL DISTRIBUTION WIDTH 16.1 % (11.5-14.5)
[2017-09-02 05:30] VITALS: BP 116/63
[2017-09-02 05:59] LABS: ALANINE AMINOTRANSFERASE 58 U/L (12-78); ALBUMIN 2.8 G/DL (3.4-5.0); ALKALINE PHOSPHATASE 55 IU/L (46-116); ANION GAP 7 (8-16); ASPARTATE AMINO TRANSFERASE 28 U/L (10-37); BILIRUBIN,TOTAL 0.8 MG/DL (0.1-1.0); BLOOD UREA NITROGEN 36 MG/DL (7-18); BUN/CREATININE RATIO 24.2 (6.6-38.0); CALCIUM 8.5 MG/DL (8.5-10.1); CHLORIDE 108 MMOL/L (99-107); CREATININE 1.49 MG/DL (0.40-0.90); GLUCOSE 82 MG/DL (70-104); MAGNESIUM 2.2 MG/DL (1.5-2.4); PHOSPHORUS 4.9 MG/DL (2.3-4.5); POTASSIUM 4.3 MMOL/L (3.5-5.1); SODIUM 142 MMOL/L (135-145); TOTAL CARBON DIOXIDE 27.1 MMOL/L (24-32); TOTAL PROTEIN 5.6 G/DL (6.4-8.2); eGFR 34 ML/MIN
[2017-09-02] MEDS: lactobacillus rhamnosus 10,000 MMU CELLS/CAPSULE PO SCH ×2 (07:44→20:29)
[2017-09-02] MEDS: carvedilol 6.25mg tablet PO SCH ×2 (07:44→20:29)
[2017-09-02] MEDS: aspirin 81mg tab.chew PO SCH (07:44)
[2017-09-02] MEDS: ferrous sulfate 325mg tablet PO SCH ×2 (07:44→20:29)
[2017-09-02] MEDS: heparin, porcine 5000 units/ml vial SQ SCH ×2 (07:48→20:28)
[2017-09-02] MEDS ORDERED: MESSAGE TO NURSING PO ONE ×4 (08:50→10:00)
[2017-09-02] MEDS: insulin Lispro (HumaLOG) vial - multi-dose SQ SCH ×3 (09:44→19:14)
[2017-09-02 11:00] VITALS: BP 127/61
[2017-09-02 14:10] LABS: ABG BASE EXCESS -1.5 mmol/L (-2.0-3.0); ABG HCO3 21.7 mmol/L (22.0-26.0); ABG OXYGEN SATURATION 93.3 % (95-98); ABG PCO2 (T) 30.5 mmHg (32.0-45.0); ABG PO2 (T) 66.4 mmHg (83-108); ALLEN'S TEST Positive; FCOHb 0.3 % (0.5-1.5); FLOW 4 L/min; FMetHb 0.1 % (0.3-1.12); FO2Hb 92.9 % (94-100); TOTAL HEMOGLOBIN 8.8 G/dl (12.0-16.0)
[2017-09-02] MEDS ORDERED: albuterol 2.5 MG/3 ML nebule ONE (14:19)
[2017-09-02] MEDS ORDERED: albuterol 2.5 MG/3 ML nebule NEB ONE (14:20)
[2017-09-02 15:00] VITALS: BP 125/69
[2017-09-02 18:00] VITALS: BP 137/60
[2017-09-02] MEDS ORDERED: ringers solution, lacted 1,000 ML IV ONE (19:10)
[2017-09-02] MEDS ORDERED: metoprolol tartrate 25mg tablet PO SCH (20:00)
[2017-09-02] MEDS: mupirocin 2% nasal ointment 1gm UD NS SCH (20:29)
[2017-09-02] MEDS: insulin glargine (Lantus) pen - multi-dose SQ SCH (20:29)
[2017-09-02] MEDS: atorvastatin 20mg tablet PO SCH (20:29)
[2017-09-02 22:00] VITALS: BP 130/70
[2017-09-03] VITALS (16 sets, daily range): BP systolic 110–136; BP diastolic 53–79
[2017-09-03] MEDS: gabapentin 100mg capsule PO SCH ×4 (00:13→23:24)
[2017-09-03] MEDS ORDERED: vancomycin/NS 1 GM ADD-VANTAGE 250 ML IV ONE (05:00)
[2017-09-03] MEDS ORDERED: famotidine 20mg tablet PO ONE (06:00)
[2017-09-03] MEDS ORDERED: ceFAZolin 1GM/D5W- ADD-VANTAGE 50 ML IV ONE (06:00)
[2017-09-03] MEDS ORDERED: LORazepam 2 mg/ml vial IV ONE (06:00)
[2017-09-03 06:02] LABS: PROTHROMBIN TIME 10.3 SECONDS (9.0-12.0)
[2017-09-03 06:03] LABS: BASOPHILS # (AUTO) 0.1 X10'3 (0-0.2); BASOPHILS % (AUTO) 0.7 % (0-1); EOSINOPHILS # (AUTO) 0.5 X10'3 (0-0.9); HEMATOCRIT 24.1 % (35.0-45.0); HEMOGLOBIN 8.1 g/dl (12.0-16.0); LYMPHOCYTES # (AUTO) 1.2 X10'3 (1.1-4.8); LYMPHOCYTES % (AUTO) 16.4 % (21-51); MEAN CORPUSCULAR HEMOGLOBIN 28.7 PG (27.0-31.0); MEAN CORPUSCULAR HGB CONC 33.7 % (33.0-36.5); MEAN CORPUSCULAR VOLUME 85.1 FL (78-98); MONOCYTES # (AUTO) 0.6 X10'3 (0-0.9); NEUTROPHILS # (AUTO) 5.2 X10'3 (1.8-7.7); NEUTROPHILS % (AUTO) 68.9 % (42-75); PLATELET COUNT 232 X10'3 (140-440); RED BLOOD COUNT 2.84 X10'6 (4.20-5.60); RED CELL DISTRIBUTION WIDTH 15.6 % (11.5-14.5); WHITE BLOOD COUNT 7.5 X10'3 (4.5-11.0)
[2017-09-03 06:16] LABS: ALANINE AMINOTRANSFERASE 56 U/L (12-78); ALBUMIN 2.8 G/DL (3.4-5.0); ALKALINE PHOSPHATASE 52 IU/L (46-116); ANION GAP 7 (8-16); ASPARTATE AMINO TRANSFERASE 25 U/L (10-37); BILIRUBIN,TOTAL 0.8 MG/DL (0.1-1.0); BLOOD UREA NITROGEN 36 MG/DL (7-18); CALCIUM 8.7 MG/DL (8.5-10.1); CHLORIDE 108 MMOL/L (99-107); GLUCOSE 128 MG/DL (70-104); MAGNESIUM 2.1 MG/DL (1.5-2.4); PHOSPHORUS 4.8 MG/DL (2.3-4.5); POTASSIUM 4.6 MMOL/L (3.5-5.1); SODIUM 143 MMOL/L (135-145); TOTAL CARBON DIOXIDE 27.7 MMOL/L (24-32); TOTAL PROTEIN 5.6 G/DL (6.4-8.2); eGFR 34 ML/MIN
[2017-09-03] MEDS ORDERED: heparin 10,000 units/1 ML INJ IR ONE (07:00)
[2017-09-03] MEDS ORDERED: papaverine 30 mg/ml 2ml inj. IA ONE (07:00)
[2017-09-03] MEDS: mupirocin 2% nasal ointment 1gm UD NS SCH ×2 (07:24→20:09)
[2017-09-03] MEDS ORDERED: MIDAZolam 1mg/ml 10ml vial ONE (07:29)
[2017-09-03] MEDS ORDERED: SUFENTANIL CITRATE 50 MCG/ML 2ml ampule IV ONE (07:29)
[2017-09-03] MEDS ORDERED: rocuronium 10mg/ml inj IV ONE ×2 (07:31)
[2017-09-03] MEDS ORDERED: LIDOcaine 2% (20mg/ml) 5ml vial ONE (07:31)
[2017-09-03] MEDS ORDERED: heparin 10,000 units/1 ML INJ ONE ×2 (07:41→09:00)
[2017-09-03] MEDS ORDERED: phenylephrine 10mg/ml inj. ONE ×2 (07:41→15:41)
[2017-09-03] MEDS ORDERED: INSULIN R 100 UNIT in NS 100ML (1 UNIT/1 ML) BAG IV ONE (07:41)
[2017-09-03] MEDS ORDERED: albumin (human) 25% 100 ML IV solution IV ONE (07:41)
[2017-09-03] MEDS ORDERED: protamine sulf. 10mg/ml inj. IV ONE (07:41)
[2017-09-03] MEDS ORDERED: isoflurane 100ml inhalation liquid IH ONE (07:41)
[2017-09-03] MEDS ORDERED: heparin 1,000 units/ml 10ml inj ONE (07:41)
[2017-09-03] MEDS ORDERED: magnesium sulf 1 GM/2 ML ONE (07:41)
[2017-09-03] MEDS ORDERED: calcium chloride 100 MG/1 ML inj IV ONE ×2 (07:41→08:45)
[2017-09-03] MEDS ORDERED: aminocaproic acid 250 MG/1 ML inj. ONE (07:41)
[2017-09-03] MEDS ORDERED: potassium Cl 2 mEq/ml inj IV ONE (07:41)
[2017-09-03] MEDS ORDERED: LIDOcaine 2% (20 mg/ml) 5ml cardiac syringe ONE (07:41)
[2017-09-03] MEDS ORDERED: sodium bicarbonate (8.4%) 1 mEq/ml syringe ONE (07:41)
[2017-09-03] MEDS ORDERED: DOPamine/D5W 400mg/250ml bag IV ONE (07:41)
[2017-09-03] MEDS ORDERED: methylPREDNISolone sod. succ. 500mg inj ONE (07:41)
[2017-09-03] MEDS ORDERED: nitroGLYCERIN in D5W 50mg/250ml (Tridil) infusion IV ONE (07:41)
[2017-09-03] MEDS ORDERED: propofol inj 20 ML IV ONE (07:50)
[2017-09-03] MEDS: heparin, porcine 5000 units/ml vial SQ SCH ×2 (08:00→20:00)
[2017-09-03] MEDS: carvedilol 6.25mg tablet PO SCH (08:00)
[2017-09-03] MEDS: lactobacillus rhamnosus 10,000 MMU CELLS/CAPSULE PO SCH ×2 (08:00→20:00)
[2017-09-03] MEDS: aspirin 81mg tab.chew PO SCH (08:00)
[2017-09-03] MEDS: ferrous sulfate 325mg tablet PO SCH ×2 (08:00→20:00)
[2017-09-03 08:01] LABS: ABG BASE EXCESS -2.3 mmol/L (-2.0-3.0); ABG HCO3 23.2 mmol/L (22.0-26.0); ABG OXYGEN SATURATION 99.3 % (95-98); ABG PCO2 42.9 mmHg (35.0-45.0); ABG PO2 192.4 mmHg (60.0-100.0); CL (ABG) 108 mmol/L (99-107); FCOHb 0.5 % (0.5-1.5); FO2Hb 98.8 % (94-100); GLUCOSE (ABG) 152 mg/dl (70-105); IONIZED CA (ABG) 1.19 mmol/L (1.03-1.32); K (ABG) 4.6 mmol/L (3.3-5.1); NA (ABG) 142 mmol/L (135-145); TOTAL HEMOGLOBIN 8.9 G/dl (12.0-16.0)
[2017-09-03] MEDS ORDERED: ceFAZolin 1000mg inj ONE ×3 (08:20→11:30)
[2017-09-03 08:31] LABS: ACT @ 1.70 U 357 SEC (193-297); ACT @ 2.84 U 541 SEC (260-420); BASELINE ACT 175 SEC (101-148); PATIENT WEIGHT 72.0k KG
[2017-09-03] MEDS ORDERED: papaverine 30 mg/ml 2ml inj. ONE (09:00)
[2017-09-03 09:41] LABS: ABG BASE EXCESS -1.1 mmol/L (-2.0-3.0); ABG HCO3 24.2 mmol/L (22.0-26.0); ABG OXYGEN SATURATION 86.3 % (95-98); ABG PH 7.368 (7.350-7.450); CL (ABG) 110 mmol/L (99-107); FCOHb 0.7 % (0.5-1.5); FMetHb 0.7 % (0.3-1.12); FO2Hb 85.1 % (94-100); GLUCOSE (ABG) 124 mg/dl (70-105); IONIZED CA (ABG) 1.15 mmol/L (1.03-1.32); K (ABG) 4.6 mmol/L (3.3-5.1); NA (ABG) 138 mmol/L (135-145); TOTAL HEMOGLOBIN 7.6 G/dl (12.0-16.0)
[2017-09-03 10:21] LABS: ABG BASE EXCESS -1.4 mmol/L (-2.0-3.0); ABG HCO3 21.6 mmol/L (22.0-26.0); ABG OXYGEN SATURATION 99.6 % (95-98); ABG PCO2 29.3 mmHg (35.0-45.0); ABG PH 7.485 (7.350-7.450); ABG PO2 393.4 mmHg (60.0-100.0); CL (ABG) 108 mmol/L (99-107); FCOHb 0.8 % (0.5-1.5); FMetHb 0.1 % (0.3-1.12); FO2Hb 98.7 % (94-100); GLUCOSE (ABG) 144 mg/dl (70-105); IONIZED CA (ABG) 1.01 mmol/L (1.03-1.32); K (ABG) 4.9 mmol/L (3.3-5.1); NA (ABG) 135 mmol/L (135-145); TOTAL HEMOGLOBIN 7.8 G/dl (12.0-16.0)
[2017-09-03] MEDS ORDERED: ipratropium/albuterol 3ml nebule IH PRN (10:45)
[2017-09-03 10:56] LABS: ABG BASE EXCESS -1.3 mmol/L (-2.0-3.0); ABG HCO3 23.8 mmol/L (22.0-26.0); ABG OXYGEN SATURATION 99.7 % (95-98); ABG PCO2 41.6 mmHg (35.0-45.0); ABG PH 7.375 (7.350-7.450); ABG PO2 412.8 mmHg (60.0-100.0); CL (ABG) 111 mmol/L (99-107); FCOHb 0.8 % (0.5-1.5); FMetHb 0.2 % (0.3-1.12); FO2Hb 98.7 % (94-100); GLUCOSE (ABG) 131 mg/dl (70-105); IONIZED CA (ABG) 1.08 mmol/L (1.03-1.32); NA (ABG) 137 mmol/L (135-145); TOTAL HEMOGLOBIN 8.2 G/dl (12.0-16.0)
[2017-09-03 11:23] LABS: ABG BASE EXCESS -1.8 mmol/L (-2.0-3.0); ABG HCO3 23.8 mmol/L (22.0-26.0); ABG OXYGEN SATURATION 99.2 % (95-98); ABG PCO2 44.3 mmHg (35.0-45.0); ABG PH 7.348 (7.350-7.450); ABG PO2 416.8 mmHg (60.0-100.0); CL (ABG) 112 mmol/L (99-107); FCOHb 0.2 % (0.5-1.5); FMetHb 0.8 % (0.3-1.12); FO2Hb 98.2 % (94-100); GLUCOSE (ABG) 116 mg/dl (70-105); NA (ABG) 137 mmol/L (135-145); TOTAL HEMOGLOBIN 8.5 G/dl (12.0-16.0)
[2017-09-03 11:41] LABS: ABG BASE EXCESS -1.4 mmol/L (-2.0-3.0); ABG HCO3 24.2 mmol/L (22.0-26.0); ABG OXYGEN SATURATION 99.3 % (95-98); ABG PCO2 45.1 mmHg (35.0-45.0); ABG PH 7.348 (7.350-7.450); ABG PO2 413.9 mmHg (60.0-100.0); CL (ABG) 113 mmol/L (99-107); FCOHb 0.3 % (0.5-1.5); FMetHb 0.9 % (0.3-1.12); FO2Hb 98.1 % (94-100); GLUCOSE (ABG) 113 mg/dl (70-105); IONIZED CA (ABG) 1.09 mmol/L (1.03-1.32); NA (ABG) 138 mmol/L (135-145); TOTAL HEMOGLOBIN 8.3 G/dl (12.0-16.0)
[2017-09-03 12:31] LABS: ABG BASE EXCESS -3.4 mmol/L (-2.0-3.0); ABG HCO3 21.1 mmol/L (22.0-26.0); ABG OXYGEN SATURATION 99.2 % (95-98); ABG PCO2 35.4 mmHg (35.0-45.0); ABG PH 7.394 (7.350-7.450); ABG PO2 350.6 mmHg (60.0-100.0); CL (ABG) 112 mmol/L (99-107); FCOHb 0.5 % (0.5-1.5); FO2Hb 97.7 % (94-100); GLUCOSE (ABG) 91 mg/dl (70-105); IONIZED CA (ABG) 1.03 mmol/L (1.03-1.32); K (ABG) 5.3 mmol/L (3.3-5.1); NA (ABG) 138 mmol/L (135-145); TOTAL HEMOGLOBIN 7.6 G/dl (12.0-16.0)
[2017-09-03 13:01] LABS: ABG BASE EXCESS 0.4 mmol/L (-2.0-3.0); ABG HCO3 25.7 mmol/L (22.0-26.0); ABG OXYGEN SATURATION 99.1 % (95-98); ABG PCO2 44.7 mmHg (35.0-45.0); ABG PH 7.377 (7.350-7.450); ABG PO2 366.8 mmHg (60.0-100.0); CL (ABG) 112 mmol/L (99-107); FCOHb 0.3 % (0.5-1.5); FO2Hb 97.8 % (94-100); GLUCOSE (ABG) 104 mg/dl (70-105); IONIZED CA (ABG) 1.26 mmol/L (1.03-1.32); K (ABG) 5.4 mmol/L (3.3-5.1); NA (ABG) 140 mmol/L (135-145); TOTAL HEMOGLOBIN 8.3 G/dl (12.0-16.0)
[2017-09-03 13:41] LABS: ABG BASE EXCESS VENOUS -1.5 mmol/L; ABG HCO3 VENOUS 24.9 mmol/L; ABG PO2 VENOUS 45.6 mmHg; CL (ABG) 112 mmol/L (99-107); FCOHb VENOUS 0.4 %; FHHb VENOUS 20.1 %; FMetHb VENOUS 0.9 %; FO2Hb VENOUS 78.6 %; GLUCOSE (ABG) 152 mg/dl (70-105); IONIZED CA (ABG) 1.13 mmol/L (1.03-1.32); K (ABG) 4.7 mmol/L (3.3-5.1); NA (ABG) 141 mmol/L (135-145); TOTAL HEMOGLOBIN 9.8 G/dl (12.0-16.0)
[2017-09-03] MEDS ORDERED: sodium phosphate inj. 30 MMOL in dextrose 5%-water 250 ML IV PRN (14:25)
[2017-09-03] MEDS ORDERED: ondansetron/PF 4mg/2ml inj IV PRN (14:25)
[2017-09-03] MEDS ORDERED: niCARDipine/sod cl 20mg/200ml 200 ML IV PRN (14:25)
[2017-09-03] MEDS ORDERED: magnesium hydroxide 30ml (MOM) UD suspension PO PRN (14:25)
[2017-09-03] MEDS ORDERED: insulin regular, human inj. 100 UNITS in normal saline 100ml IV soln 100 ML IV SCH ×2 (14:25)
[2017-09-03] MEDS ORDERED: potassium Cl 20mEq/100mL bag 100 ML IV PRN ×3 (14:25)
[2017-09-03] MEDS ORDERED: magnesium 1gm/100ml D5W IVPB 100 ML IV PRN (14:25)
[2017-09-03] MEDS ORDERED: sodium phosphate inj. 15 MMOL in dextrose 5%-water 150 ML IV PRN (14:25)
[2017-09-03] MEDS ORDERED: normal saline 250ml IV soln 250 ML IV PRN (14:25)
[2017-09-03] MEDS ORDERED: DOPamine 400mg/D5W 250ml 250 ML IV PRN (14:25)
[2017-09-03] MEDS ORDERED: nitroGLYCERIN-Tridil 50MG/D5W 250 ML IV PRN (14:25)
[2017-09-03] MEDS ORDERED: Neutra Phos packet PO PRN (14:25)
[2017-09-03] MEDS ORDERED: acetaminophen 325mg tablet PO PRN (14:25)
[2017-09-03] MEDS ORDERED: magnesium 4gm in 100ml NS 100 ML IV PRN (14:25)
[2017-09-03] MEDS ORDERED: HYDROcodone/acetaminophen 10/325mg tab PO PRN (14:25)
[2017-09-03] MEDS ORDERED: metoclopramide 5 mg/ml inj IV PRN (14:25)
[2017-09-03] MEDS: epiNEPHrine inj 5 MG, calcium chloride inj. 1,000 MG in normal saline 250ml IV soln 250 ML IV SCH (14:25)
[2017-09-03] MEDS ORDERED: dextrose 50%-water 50ml dispensing syringe IV PRN (14:25)
[2017-09-03 14:36] LABS: ACTIVATED CLOTTING TIME 110 SEC (101-148)
[2017-09-03 14:40] LABS: ABG BASE EXCESS -1.5 mmol/L (-2.0-3.0); ABG HCO3 22.9 mmol/L (22.0-26.0); ABG OXYGEN SATURATION 99.1 % (95-98); ABG PCO2 (T) 37.9 mmHg (32.0-45.0); ABG PO2 (T) 289.7 mmHg (83-108); FCOHb 0.3 % (0.5-1.5); FMetHb 0.5 % (0.3-1.12); FO2Hb 98.3 % (94-100); MINUTE VOLUME 6 L/min; PEEP 5 cm H2O; RESPIRATORY RATE 12 b/min; RESPIRATORY RATE (OBSERVED) 12 b/min; TIDAL VOLUME 600 mL; TOTAL HEMOGLOBIN 11.6 G/dl (12.0-16.0)
[2017-09-03 14:43] LABS: BASOPHILS # (AUTO) 0.1 X10'3 (0-0.2); BASOPHILS % (AUTO) 0.2 % (0-1); EOSINOPHILS # (AUTO) 0.2 X10'3 (0-0.9); EOSINOPHILS % (AUTO) 0.6 % (0-6); HEMATOCRIT 31.7 % (35.0-45.0); HEMOGLOBIN 10.8 g/dl (12.0-16.0); LYMPHOCYTES # (AUTO) 1.1 X10'3 (1.1-4.8); LYMPHOCYTES % (AUTO) 3.3 % (21-51); MEAN CORPUSCULAR HEMOGLOBIN 29.3 PG (27.0-31.0); MEAN CORPUSCULAR HGB CONC 34.1 % (33.0-36.5); MEAN CORPUSCULAR VOLUME 85.9 FL (78-98); MONOCYTES % (AUTO) 3.1 % (2-12); NEUTROPHILS # (AUTO) 30.1 X10'3 (1.8-7.7); NEUTROPHILS % (AUTO) 92.8 % (42-75); PLATELET COUNT 113 X10'3 (140-440); RED BLOOD COUNT 3.69 X10'6 (4.20-5.60); RED CELL DISTRIBUTION WIDTH 15.4 % (11.5-14.5)
[2017-09-03 14:46] LABS: WHITE BLOOD COUNT 32.4 X10'3 (4.5-11.0)
[2017-09-03] MEDS ORDERED: albumin (Human) 5% 250ml 250 ML IV ONE (14:47)
[2017-09-03 14:54] LABS: INR 1.2 INR; PARTIAL THROMBOPLASTIN TIME 34 SECONDS (22-32)
[2017-09-03 14:58] LABS: ALANINE AMINOTRANSFERASE 42 U/L (12-78); ALBUMIN 2.2 G/DL (3.4-5.0); ALKALINE PHOSPHATASE 36 IU/L (46-116); ANION GAP 7 (8-16); BILIRUBIN,TOTAL 1.3 MG/DL (0.1-1.0); BLOOD UREA NITROGEN 35 MG/DL (7-18); BUN/CREATININE RATIO 23.8 (6.6-38.0); CALCIUM 8.2 MG/DL (8.5-10.1); CHLORIDE 113 MMOL/L (99-107); CREATININE 1.47 MG/DL (0.40-0.90); GLUCOSE 139 MG/DL (70-104); SODIUM 146 MMOL/L (135-145); TOTAL CARBON DIOXIDE 25.8 MMOL/L (24-32); TOTAL PROTEIN 4.4 G/DL (6.4-8.2); eGFR 35 ML/MIN
[2017-09-03 14:59] LABS: PLATELET ESTIMATE DECREASED; TOTAL CELLS COUNTED 100
[2017-09-03 15:00] LABS: ASPARTATE AMINO TRANSFERASE 79 U/L (10-37); PHOSPHORUS 3.6 MG/DL (2.3-4.5)
[2017-09-03 15:01] LABS: POTASSIUM 4.6 MMOL/L (3.5-5.1)
[2017-09-03] MEDS: sodium chloride 0.45% 1,000 ML IV SCH (15:07)
[2017-09-03] MEDS ORDERED: epiNEPHrine 1 mg/ml inj ONE (15:41)
[2017-09-03] MEDS ORDERED: DOBUTamine-DoBUTrex 500mg/D5W 250 ML IV SCH (15:45)
[2017-09-03] MEDS ORDERED: DOBUTamine-DoBUTrex 500mg/D5W 250 ML IV ONE (15:49)
[2017-09-03] MEDS: insulin regular, human 100 UNIT in normal saline 100ml IV soln 99 ML IV SCH ×4 (15:49→20:04)
[2017-09-03] MEDS: DOBUTamine-DoBUTrex 500mg/D5W 250 ML IV SCH (16:01)
[2017-09-03] MEDS: insulin Lispro (HumaLOG) vial - multi-dose SQ SCH (16:02)
[2017-09-03] MEDS: albumin (Human) 5% 250ml 250 ML IV PRN ×2 (17:50→18:02)
[2017-09-03] MEDS: docusate sod 100mg capsule PO SCH (20:00)
[2017-09-03] MEDS: morphine 4 MG/ML inj SYRINge IV PRN ×2 (20:09→23:16)
[2017-09-03] MEDS: vancomycin/NS 1 GM ADD-VANTAGE 250 ML IV SCH (20:10)
[2017-09-03] MEDS: insulin glargine (Lantus) pen - multi-dose SQ SCH (20:10)
[2017-09-04] VITALS (24 sets, daily range): BP systolic 110–147; BP diastolic 48–66
[2017-09-04 01:44] LABS: PARTIAL THROMBOPLASTIN TIME 34 SECONDS (22-32); PROTHROMBIN TIME 10.8 SECONDS (9.0-12.0)
[2017-09-04 01:50] LABS: BASOPHILS % (AUTO) 0 % (0-1); EOSINOPHILS # (AUTO) 0.2 X10'3 (0-0.9); EOSINOPHILS % (AUTO) 1.2 % (0-6); HEMATOCRIT 26.6 % (35.0-45.0); HEMOGLOBIN 8.9 g/dl (12.0-16.0); LYMPHOCYTES # (AUTO) 0.8 X10'3 (1.1-4.8); LYMPHOCYTES % (AUTO) 5.1 % (21-51); MEAN CORPUSCULAR HEMOGLOBIN 28.9 PG (27.0-31.0); MEAN CORPUSCULAR HGB CONC 33.6 % (33.0-36.5); MEAN CORPUSCULAR VOLUME 86.1 FL (78-98); MONOCYTES # (AUTO) 0.7 X10'3 (0-0.9); MONOCYTES % (AUTO) 4.1 % (2-12); NEUTROPHILS # (AUTO) 14.2 X10'3 (1.8-7.7); NEUTROPHILS % (AUTO) 89.6 % (42-75); PLATELET COUNT 80 X10'3 (140-440); RED BLOOD COUNT 3.09 X10'6 (4.20-5.60); RED CELL DISTRIBUTION WIDTH 15.3 % (11.5-14.5); WHITE BLOOD COUNT 15.9 X10'3 (4.5-11.0)
[2017-09-04 01:51] LABS: ALANINE AMINOTRANSFERASE 31 U/L (12-78); ALBUMIN 2.9 G/DL (3.4-5.0); ALBUMIN/GLOBULIN RATIO 1.4 (1.1-1.5); ALKALINE PHOSPHATASE 29 IU/L (46-116); ANION GAP 10 (8-16); ASPARTATE AMINO TRANSFERASE 69 U/L (10-37); BILIRUBIN,TOTAL 1.4 MG/DL (0.1-1.0); BLOOD UREA NITROGEN 36 MG/DL (7-18); BUN/CREATININE RATIO 23.4 (6.6-38.0); CALCIUM 8.2 MG/DL (8.5-10.1); CHLORIDE 113 MMOL/L (99-107); CREATININE 1.54 MG/DL (0.40-0.90); GLUCOSE 143 MG/DL (70-104); MAGNESIUM 2.7 MG/DL (1.5-2.4); PHOSPHORUS 3.6 MG/DL (2.3-4.5); POTASSIUM 4.5 MMOL/L (3.5-5.1); SODIUM 145 MMOL/L (135-145); TOTAL CARBON DIOXIDE 21.6 MMOL/L (24-32); eGFR 33 ML/MIN
[2017-09-04] MEDS: morphine 4 MG/ML inj SYRINge IV PRN ×3 (03:26→20:06)
[2017-09-04] MEDS: insulin regular, human 100 UNIT in normal saline 100ml IV soln 99 ML IV SCH ×2 (06:24)
[2017-09-04 07:11] LABS: ABG BASE EXCESS -3.7 mmol/L (-2.0-3.0); ABG HCO3 20.7 mmol/L (22.0-26.0); ABG OXYGEN SATURATION 97.9 % (95-98); ABG PCO2 (T) 35.3 mmHg (32.0-45.0); ABG PH (T) 7.387 (7.350-7.450); ABG PO2 (T) 135.8 mmHg (83-108); FCOHb 0.2 % (0.5-1.5); FMetHb 0.3 % (0.3-1.12); FO2Hb 97.4 % (94-100); MINUTE VOLUME 6 L/min; PEEP 5 cm H2O; RESPIRATORY RATE (OBSERVED) 13 b/min; TOTAL HEMOGLOBIN 9.8 G/dl (12.0-16.0)
[2017-09-04] MEDS: vancomycin/NS 1 GM ADD-VANTAGE 250 ML IV SCH ×2 (07:32→20:04)
[2017-09-04] MEDS: metoprolol tartrate 12.5mg (1/2 tablet) PO SCH ×2 (08:00→21:23)
[2017-09-04] MEDS: insulin Lispro (HumaLOG) vial - multi-dose SQ SCH ×4 (09:00→22:12)
[2017-09-04] MEDS: aspirin 325mg tablet PO SCH (12:01)
[2017-09-04] MEDS: atorvastatin 10mg tablet PO SCH (12:01)
[2017-09-04] MEDS: ferrous sulfate 325mg tablet PO SCH ×2 (12:01→20:13)
[2017-09-04] MEDS: pantoprazole 40mg Tablet.DR PO SCH (12:01)
[2017-09-04] MEDS: lactobacillus rhamnosus 10,000 MMU CELLS/CAPSULE PO SCH ×2 (12:01→20:13)
[2017-09-04] MEDS: gabapentin 100mg capsule PO SCH ×2 (12:02→17:00)
[2017-09-04] MEDS: mupirocin 2% nasal ointment 1gm UD NS SCH ×2 (12:02→20:09)
[2017-09-04] MEDS: docusate sod 100mg capsule PO SCH ×2 (12:03→20:13)
[2017-09-04] MEDS ORDERED: dextrose ORAL solution 15 GM/59 ML bottle PO PRN ×2 (18:30)
[2017-09-04] MEDS ORDERED: insulin regular, human vial - multi-dose SQ SCH (18:30)
[2017-09-04] MEDS ORDERED: glucagon, human recombinant 1mg kit SUBCUT PRN (18:30)
[2017-09-04] MEDS ORDERED: dextrose 50%-water 50ml dispensing syringe IV PRN ×2 (18:30)
[2017-09-04] MEDS ORDERED: furosemide 40mg/4ml inj IV ONE (19:55)
[2017-09-04] MEDS: insulin glargine (Lantus) pen - multi-dose SQ SCH (22:15)
[2017-09-05] VITALS (24 sets, daily range): BP systolic 122–144; BP diastolic 45–63
[2017-09-05] MEDS: gabapentin 100mg capsule PO SCH ×4 (00:13→23:39)
[2017-09-05] MEDS: morphine 4 MG/ML inj SYRINge IV PRN ×7 (00:27→22:08)
[2017-09-05 05:27] LABS: BASOPHILS % (AUTO) 0.2 % (0-1); EOSINOPHILS % (AUTO) 0 % (0-6); HEMATOCRIT 26.1 % (35.0-45.0); HEMOGLOBIN 8.6 g/dl (12.0-16.0); LYMPHOCYTES # (AUTO) 0.8 X10'3 (1.1-4.8); LYMPHOCYTES % (AUTO) 4.3 % (21-51); MEAN CORPUSCULAR HEMOGLOBIN 29.1 PG (27.0-31.0); MEAN CORPUSCULAR HGB CONC 33.2 % (33.0-36.5); MEAN CORPUSCULAR VOLUME 87.6 FL (78-98); MEAN PLATELET VOLUME 9.1 FL (7.4-10.4); MONOCYTES # (AUTO) 1.5 X10'3 (0-0.9); MONOCYTES % (AUTO) 7.8 % (2-12); NEUTROPHILS # (AUTO) 16.4 X10'3 (1.8-7.7); NEUTROPHILS % (AUTO) 87.7 % (42-75); PLATELET COUNT 104 X10'3 (140-440); RED BLOOD COUNT 2.97 X10'6 (4.20-5.60); RED CELL DISTRIBUTION WIDTH 16.6 % (11.5-14.5); WHITE BLOOD COUNT 18.7 X10'3 (4.5-11.0)
[2017-09-05 05:40] LABS: ALBUMIN 2.8 G/DL (3.4-5.0); ANION GAP 7 (8-16); BLOOD UREA NITROGEN 40 MG/DL (7-18); BUN/CREATININE RATIO 23.4 (6.6-38.0); CALCIUM 8.4 MG/DL (8.5-10.1); CHLORIDE 111 MMOL/L (99-107); CREATININE 1.71 MG/DL (0.40-0.90); GLUCOSE 226 MG/DL (70-104); PHOSPHORUS 5.5 MG/DL (2.3-4.5); POTASSIUM 5.7 MMOL/L (3.5-5.1); SODIUM 141 MMOL/L (135-145); TOTAL CARBON DIOXIDE 23.2 MMOL/L (24-32); eGFR 29 ML/MIN
[2017-09-05] MEDS: pantoprazole 40mg Tablet.DR PO SCH (06:38)
[2017-09-05] MEDS: DOBUTamine-DoBUTrex 500mg/D5W 250 ML IV SCH (06:40)
[2017-09-05 06:49] LABS: MAGNESIUM 2.4 MG/DL (1.5-2.4)
[2017-09-05] MEDS: atorvastatin 10mg tablet PO SCH (07:48)
[2017-09-05] MEDS: docusate sod 100mg capsule PO SCH ×2 (07:48→19:54)
[2017-09-05] MEDS: lactobacillus rhamnosus 10,000 MMU CELLS/CAPSULE PO SCH ×2 (07:48→19:53)
[2017-09-05] MEDS: ferrous sulfate 325mg tablet PO SCH ×2 (07:48→19:53)
[2017-09-05] MEDS: mupirocin 2% nasal ointment 1gm UD NS SCH (07:48)
[2017-09-05] MEDS: aspirin 325mg tablet PO SCH (07:48)
[2017-09-05] MEDS: metoprolol tartrate 12.5mg (1/2 tablet) PO SCH (07:49)
[2017-09-05] MEDS: sodium chloride 0.45% 1,000 ML IV SCH ×2 (07:51→23:39)
[2017-09-05] MEDS: epiNEPHrine inj 5 MG, calcium chloride inj. 1,000 MG in normal saline 250ml IV soln 250 ML IV SCH (07:57)
[2017-09-05] MEDS: insulin Lispro (HumaLOG) vial - multi-dose SQ SCH ×2 (09:19→13:26)
[2017-09-05 10:37] LABS: CLARITY,URINE CLEAR (Clear); COLOR,URINE YELLOW (Yellow); GLUCOSE, URINE NEGATIVE (Neg); KETONES,URINE NEGATIVE (Neg); LEUKOCYTE ESTERASE ,URINE NEGATIVE (Neg); NITRITES, URINE NEGATIVE (Neg); OCCULT BLOOD,URINE SMALL (Neg); PH,URINE 5.5 (4.8-8.0); PROTEIN,URINE NEGATIVE (Neg); UROBILINOGEN,URINE 0.2 E.U/dL (0.2-1.0)
[2017-09-05 10:41] LABS: UA COLLECTION TYPE NON-SPECIFIED
[2017-09-05 10:42] LABS: BACTERIA,URINE NONE SEEN /HPF (Neg); HYALINE CASTS 0-3 /LPF (NEGATIVE); MUCUS STRANDS FEW /LPF (Neg); RBC,URINE 0-2 /HPF (0-2); SQUAMOUS EPITHELIAL CELL,UR NONE SEEN /LPF (FEW); WBC,URINE NONE SEEN /HPF (0-4)
[2017-09-05] MEDS: carVEDilol 3.125mg tablet PO SCH (19:54)
[2017-09-05] MEDS: insulin glargine (Lantus) pen - multi-dose SQ SCH (22:05)
[2017-09-05] MEDS: lisinopril 10 MG tablet PO SCH (22:07)
[2017-09-05] MEDS: insulin regular, human 100 UNIT in normal saline 100ml IV soln 99 ML IV SCH ×2 (23:20)
[2017-09-06] VITALS (27 sets, daily range): BP systolic 102–140; BP diastolic 44–60
[2017-09-06 03:00] LABS: ALBUMIN 2.7 G/DL (3.4-5.0); ANION GAP 3 (8-16); BLOOD UREA NITROGEN 43 MG/DL (7-18); BUN/CREATININE RATIO 28.7 (6.6-38.0); CALCIUM 8.2 MG/DL (8.5-10.1); CHLORIDE 109 MMOL/L (99-107); GLUCOSE 152 MG/DL (70-104); PHOSPHORUS 4.4 MG/DL (2.3-4.5); POTASSIUM 5.4 MMOL/L (3.5-5.1); SODIUM 138 MMOL/L (135-145); TOTAL CARBON DIOXIDE 25.9 MMOL/L (24-32); eGFR 34 ML/MIN
[2017-09-06 07:05] LABS: MAGNESIUM 2.2 MG/DL (1.5-2.4)
[2017-09-06] MEDS: morphine 4 MG/ML inj SYRINge IV PRN ×2 (07:50→14:06)
[2017-09-06] MEDS ORDERED: furosemide 20 MG/2 ML vial IV SCH (08:00)
[2017-09-06] MEDS: ferrous sulfate 325mg tablet PO SCH ×2 (08:27→20:41)
[2017-09-06] MEDS: docusate sod 100mg capsule PO SCH ×2 (08:27→20:41)
[2017-09-06] MEDS: pantoprazole 40mg Tablet.DR PO SCH (08:27)
[2017-09-06] MEDS: lactobacillus rhamnosus 10,000 MMU CELLS/CAPSULE PO SCH ×2 (08:27→20:40)
[2017-09-06] MEDS: gabapentin 100mg capsule PO SCH ×3 (08:27→23:51)
[2017-09-06] MEDS: carVEDilol 3.125mg tablet PO SCH ×2 (08:27→20:41)
[2017-09-06] MEDS: aspirin 325mg tablet PO SCH (08:27)
[2017-09-06] MEDS: atorvastatin 10mg tablet PO SCH (08:28)
[2017-09-06 08:38] LABS: BASOPHILS % (AUTO) 0.1 % (0-1); EOSINOPHILS # (AUTO) 0.1 X10'3 (0-0.9); EOSINOPHILS % (AUTO) 0.6 % (0-6); HEMATOCRIT 23.1 % (35.0-45.0); HEMOGLOBIN 7.8 g/dl (12.0-16.0); LYMPHOCYTES # (AUTO) 0.7 X10'3 (1.1-4.8); MEAN CORPUSCULAR HEMOGLOBIN 29.6 PG (27.0-31.0); MEAN CORPUSCULAR HGB CONC 33.8 % (33.0-36.5); MEAN CORPUSCULAR VOLUME 87.4 FL (78-98); MEAN PLATELET VOLUME 8.9 FL (7.4-10.4); MONOCYTES # (AUTO) 1.2 X10'3 (0-0.9); MONOCYTES % (AUTO) 7.8 % (2-12); NEUTROPHILS # (AUTO) 12.8 X10'3 (1.8-7.7); NEUTROPHILS % (AUTO) 86.5 % (42-75); PLATELET COUNT 103 X10'3 (140-440); RED BLOOD COUNT 2.64 X10'6 (4.20-5.60); RED CELL DISTRIBUTION WIDTH 16.4 % (11.5-14.5); WHITE BLOOD COUNT 14.9 X10'3 (4.5-11.0)
[2017-09-06] MEDS: insulin Lispro (HumaLOG) vial - multi-dose SQ SCH (09:41)
[2017-09-06] MEDS: sodium chloride 0.45% 1,000 ML IV SCH (12:37)
[2017-09-06] MEDS: DOBUTamine-DoBUTrex 500mg/D5W 250 ML IV SCH (14:51)
[2017-09-06] MEDS: HYDROcodone/acetaminophen 10/325mg tab PO PRN (20:41)
[2017-09-06] MEDS: lisinopril 10 MG tablet PO SCH (20:41)
[2017-09-06] MEDS: insulin glargine (Lantus) pen - multi-dose SQ SCH (21:37)
[2017-09-06] MEDS: insulin regular, human 100 UNIT in normal saline 100ml IV soln 99 ML IV SCH ×2 (23:20)
[2017-09-07] VITALS (24 sets, daily range): BP systolic 82–120; BP diastolic 42–58
[2017-09-07] MEDS: sodium chloride 0.45% 1,000 ML IV SCH ×2 (03:22→14:23)
[2017-09-07 04:03] LABS: BASOPHILS % (AUTO) 0.3 % (0-1); EOSINOPHILS # (AUTO) 0.4 X10'3 (0-0.9); EOSINOPHILS % (AUTO) 3.5 % (0-6); HEMOGLOBIN 8.8 g/dl (12.0-16.0); LYMPHOCYTES # (AUTO) 1.2 X10'3 (1.1-4.8); LYMPHOCYTES % (AUTO) 10.3 % (21-51); MEAN CORPUSCULAR HEMOGLOBIN 29.7 PG (27.0-31.0); MEAN CORPUSCULAR HGB CONC 33.7 % (33.0-36.5); MEAN CORPUSCULAR VOLUME 88.1 FL (78-98); MEAN PLATELET VOLUME 8.7 FL (7.4-10.4); MONOCYTES # (AUTO) 1.1 X10'3 (0-0.9); MONOCYTES % (AUTO) 8.8 % (2-12); NEUTROPHILS # (AUTO) 9.3 X10'3 (1.8-7.7); NEUTROPHILS % (AUTO) 77.1 % (42-75); PLATELET COUNT 120 X10'3 (140-440); RED BLOOD COUNT 2.95 X10'6 (4.20-5.60); WHITE BLOOD COUNT 12.1 X10'3 (4.5-11.0)
[2017-09-07 04:18] LABS: ALBUMIN 2.3 G/DL (3.4-5.0); ANION GAP 6 (8-16); BLOOD UREA NITROGEN 44 MG/DL (7-18); BUN/CREATININE RATIO 31.9 (6.6-38.0); CHLORIDE 106 MMOL/L (99-107); CREATININE 1.38 MG/DL (0.40-0.90); GLUCOSE 122 MG/DL (70-104); PHOSPHORUS 4.1 MG/DL (2.3-4.5); POTASSIUM 5.2 MMOL/L (3.5-5.1); SODIUM 134 MMOL/L (135-145); TOTAL CARBON DIOXIDE 22.1 MMOL/L (24-32); eGFR 38 ML/MIN
[2017-09-07] MEDS: HYDROcodone/acetaminophen 10/325mg tab PO PRN ×2 (05:09→19:40)
[2017-09-07] MEDS: epiNEPHrine inj 5 MG, calcium chloride inj. 1,000 MG in normal saline 250ml IV soln 250 ML IV SCH (06:45)
[2017-09-07] MEDS: Protein Shake (high protein) 240ml (8oz) cup PO SCH ×2 (07:30→09:54)
[2017-09-07] MEDS: gabapentin 100mg capsule PO SCH ×2 (08:43→17:02)
[2017-09-07] MEDS: carVEDilol 3.125mg tablet PO SCH ×2 (08:43→21:33)
[2017-09-07] MEDS: lactobacillus rhamnosus 10,000 MMU CELLS/CAPSULE PO SCH ×2 (08:43→19:40)
[2017-09-07] MEDS: pantoprazole 40mg Tablet.DR PO SCH (08:43)
[2017-09-07] MEDS: ferrous sulfate 325mg tablet PO SCH ×2 (08:43→19:40)
[2017-09-07] MEDS: docusate sod 100mg capsule PO SCH ×2 (08:43→19:41)
[2017-09-07] MEDS: atorvastatin 10mg tablet PO SCH (08:43)
[2017-09-07] MEDS: aspirin 325mg tablet PO SCH (08:43)
[2017-09-07] MEDS: furosemide 20 MG/2 ML vial IV SCH ×2 (08:51→19:40)
[2017-09-07] MEDS: insulin Lispro (HumaLOG) vial - multi-dose SQ SCH ×2 (09:56→14:25)
[2017-09-07] MEDS: lisinopril 10 MG tablet PO SCH (21:33)
[2017-09-07] MEDS: insulin glargine (Lantus) pen - multi-dose SQ SCH (22:00)
[2017-09-07] MEDS: insulin regular, human 100 UNIT in normal saline 100ml IV soln 99 ML IV SCH ×2 (23:20)
[2017-09-08] VITALS (24 sets, daily range): BP systolic 85–132; BP diastolic 49–76
[2017-09-08] MEDS: gabapentin 100mg capsule PO SCH ×3 (00:18→16:13)
[2017-09-08 02:46] LABS: BASOPHILS % (AUTO) 0.1 % (0-1); EOSINOPHILS # (AUTO) 0.5 X10'3 (0-0.9); EOSINOPHILS % (AUTO) 4.5 % (0-6); HEMATOCRIT 25.8 % (35.0-45.0); HEMOGLOBIN 8.6 g/dl (12.0-16.0); LYMPHOCYTES % (AUTO) 9.6 % (21-51); MEAN CORPUSCULAR HEMOGLOBIN 29.5 PG (27.0-31.0); MEAN CORPUSCULAR HGB CONC 33.2 % (33.0-36.5); MEAN CORPUSCULAR VOLUME 88.8 FL (78-98); MEAN PLATELET VOLUME 8.1 FL (7.4-10.4); MONOCYTES % (AUTO) 9.4 % (2-12); NEUTROPHILS # (AUTO) 7.7 X10'3 (1.8-7.7); NEUTROPHILS % (AUTO) 76.4 % (42-75); PLATELET COUNT 136 X10'3 (140-440); RED BLOOD COUNT 2.91 X10'6 (4.20-5.60); RED CELL DISTRIBUTION WIDTH 16.2 % (11.5-14.5); WHITE BLOOD COUNT 10.1 X10'3 (4.5-11.0)
[2017-09-08 02:56] LABS: ALBUMIN 2.2 G/DL (3.4-5.0); ANION GAP 4 (8-16); BLOOD UREA NITROGEN 45 MG/DL (7-18); BUN/CREATININE RATIO 30.4 (6.6-38.0); CALCIUM 7.9 MG/DL (8.5-10.1); CHLORIDE 106 MMOL/L (99-107); CREATININE 1.48 MG/DL (0.40-0.90); GLUCOSE 89 MG/DL (70-104); POTASSIUM 5.4 MMOL/L (3.5-5.1); SODIUM 134 MMOL/L (135-145); TOTAL CARBON DIOXIDE 24.5 MMOL/L (24-32); eGFR 35 ML/MIN
[2017-09-08] MEDS: furosemide 20 MG/2 ML vial IV SCH (07:23)
[2017-09-08] MEDS: lactobacillus rhamnosus 10,000 MMU CELLS/CAPSULE PO SCH ×2 (07:23→20:05)
[2017-09-08] MEDS: pantoprazole 40mg Tablet.DR PO SCH (07:23)
[2017-09-08] MEDS: atorvastatin 10mg tablet PO SCH (07:23)
[2017-09-08] MEDS: docusate sod 100mg capsule PO SCH ×2 (07:23→20:05)
[2017-09-08] MEDS: HYDROcodone/acetaminophen 10/325mg tab PO PRN ×2 (07:23→20:13)
[2017-09-08] MEDS: ferrous sulfate 325mg tablet PO SCH ×2 (07:23→20:00)
[2017-09-08] MEDS: carVEDilol 3.125mg tablet PO SCH ×2 (07:23→20:05)
[2017-09-08] MEDS: aspirin 325mg tablet PO SCH (07:24)
[2017-09-08] MEDS: Protein Shake (high protein) 240ml (8oz) cup PO SCH (07:30)
[2017-09-08 10:50] LABS: PHOSPHORUS 4.3 MG/DL (2.3-4.5)
[2017-09-08] MEDS: lisinopril 10 MG tablet PO SCH (20:05)
[2017-09-08] MEDS: heparin, porcine 5000 units/ml vial SQ SCH (20:06)
[2017-09-08] MEDS: insulin glargine (Lantus) pen - multi-dose SQ SCH (20:18)
[2017-09-08] MEDS: epiNEPHrine inj 5 MG, calcium chloride inj. 1,000 MG in normal saline 250ml IV soln 250 ML IV SCH (22:41)
[2017-09-08] MEDS: insulin regular, human 100 UNIT in normal saline 100ml IV soln 99 ML IV SCH ×2 (22:41)
[2017-09-09] VITALS (21 sets, daily range): BP systolic 86–131; BP diastolic 43–72
[2017-09-09] MEDS: gabapentin 100mg capsule PO SCH ×3 (00:16→15:56)
[2017-09-09 04:21] LABS: BASOPHILS % (AUTO) 0.5 % (0-1); EOSINOPHILS # (AUTO) 0.5 X10'3 (0-0.9); EOSINOPHILS % (AUTO) 5.9 % (0-6); HEMOGLOBIN 8.8 g/dl (12.0-16.0); LYMPHOCYTES # (AUTO) 0.9 X10'3 (1.1-4.8); LYMPHOCYTES % (AUTO) 9.6 % (21-51); MEAN CORPUSCULAR HEMOGLOBIN 29.7 PG (27.0-31.0); MEAN CORPUSCULAR HGB CONC 33.7 % (33.0-36.5); MEAN CORPUSCULAR VOLUME 88.1 FL (78-98); MEAN PLATELET VOLUME 8.2 FL (7.4-10.4); MONOCYTES % (AUTO) 10.4 % (2-12); NEUTROPHILS # (AUTO) 6.7 X10'3 (1.8-7.7); NEUTROPHILS % (AUTO) 73.6 % (42-75); PLATELET COUNT 176 X10'3 (140-440); RED BLOOD COUNT 2.95 X10'6 (4.20-5.60); RED CELL DISTRIBUTION WIDTH 16.2 % (11.5-14.5); WHITE BLOOD COUNT 9.1 X10'3 (4.5-11.0)
[2017-09-09 04:49] LABS: ALBUMIN 2.1 G/DL (3.4-5.0); ANION GAP 7 (8-16); BLOOD UREA NITROGEN 42 MG/DL (7-18); BUN/CREATININE RATIO 28.2 (6.6-38.0); CALCIUM 8.2 MG/DL (8.5-10.1); CHLORIDE 107 MMOL/L (99-107); CREATININE 1.49 MG/DL (0.40-0.90); GLUCOSE 130 MG/DL (70-104); POTASSIUM 5.1 MMOL/L (3.5-5.1); SODIUM 139 MMOL/L (135-145); TOTAL CARBON DIOXIDE 25.3 MMOL/L (24-32); eGFR 34 ML/MIN
[2017-09-09 06:39] LABS: MAGNESIUM 1.9 MG/DL (1.5-2.4); PHOSPHORUS 4.3 MG/DL (2.3-4.5)
[2017-09-09] MEDS: Protein Shake (high protein) 240ml (8oz) cup PO SCH (08:20)
[2017-09-09] MEDS: lactobacillus rhamnosus 10,000 MMU CELLS/CAPSULE PO SCH ×2 (08:21→19:38)
[2017-09-09] MEDS: furosemide 40mg tablet PO SCH (08:21)
[2017-09-09] MEDS: aspirin 325mg tablet PO SCH (08:21)
[2017-09-09] MEDS: ferrous sulfate 325mg tablet PO SCH ×2 (08:21→19:39)
[2017-09-09] MEDS: docusate sod 100mg capsule PO SCH ×2 (08:21→19:38)
[2017-09-09] MEDS: pantoprazole 40mg Tablet.DR PO SCH (08:21)
[2017-09-09] MEDS: carVEDilol 3.125mg tablet PO SCH ×2 (08:21→19:38)
[2017-09-09] MEDS: atorvastatin 10mg tablet PO SCH (08:21)
[2017-09-09] MEDS: heparin, porcine 5000 units/ml vial SQ SCH ×2 (08:22→19:39)
[2017-09-09] MEDS: HYDROcodone/acetaminophen 10/325mg tab PO PRN ×2 (10:00→15:14)
[2017-09-09] MEDS: insulin Lispro (HumaLOG) vial - multi-dose SQ SCH (14:20)
[2017-09-09] MEDS: lisinopril 5mg tablet PO SCH (22:03)
[2017-09-09] MEDS: insulin glargine (Lantus) pen - multi-dose SQ SCH (22:05)
[2017-09-09] MEDS: insulin regular, human 100 UNIT in normal saline 100ml IV soln 99 ML IV SCH ×2 (23:20)
[2017-09-10] VITALS (24 sets, daily range): BP systolic 93–140; BP diastolic 49–87
[2017-09-10] MEDS: gabapentin 100mg capsule PO SCH ×3 (00:05→16:38)
[2017-09-10 03:30] LABS: BASOPHILS # (AUTO) 0.1 X10'3 (0-0.2); BASOPHILS % (AUTO) 0.6 % (0-1); EOSINOPHILS # (AUTO) 0.5 X10'3 (0-0.9); EOSINOPHILS % (AUTO) 5.3 % (0-6); HEMATOCRIT 24.7 % (35.0-45.0); HEMOGLOBIN 8.4 g/dl (12.0-16.0); LYMPHOCYTES # (AUTO) 0.9 X10'3 (1.1-4.8); LYMPHOCYTES % (AUTO) 9.2 % (21-51); MEAN CORPUSCULAR HEMOGLOBIN 29.9 PG (27.0-31.0); MEAN CORPUSCULAR HGB CONC 33.8 % (33.0-36.5); MEAN CORPUSCULAR VOLUME 88.5 FL (78-98); MEAN PLATELET VOLUME 8.1 FL (7.4-10.4); MONOCYTES # (AUTO) 0.9 X10'3 (0-0.9); MONOCYTES % (AUTO) 8.8 % (2-12); NEUTROPHILS # (AUTO) 7.6 X10'3 (1.8-7.7); NEUTROPHILS % (AUTO) 76.1 % (42-75); PLATELET COUNT 195 X10'3 (140-440); RED BLOOD COUNT 2.79 X10'6 (4.20-5.60); RED CELL DISTRIBUTION WIDTH 16.1 % (11.5-14.5)
[2017-09-10 03:43] LABS: ALBUMIN 2.1 G/DL (3.4-5.0); ANION GAP 3 (8-16); BLOOD UREA NITROGEN 42 MG/DL (7-18); BUN/CREATININE RATIO 28.2 (6.6-38.0); CALCIUM 8.4 MG/DL (8.5-10.1); CHLORIDE 107 MMOL/L (99-107); CREATININE 1.49 MG/DL (0.40-0.90); GLUCOSE 184 MG/DL (70-104); PHOSPHORUS 4.3 MG/DL (2.3-4.5); POTASSIUM 5.2 MMOL/L (3.5-5.1); SODIUM 137 MMOL/L (135-145); TOTAL CARBON DIOXIDE 26.7 MMOL/L (24-32); eGFR 34 ML/MIN
[2017-09-10] MEDS: atorvastatin 10mg tablet PO SCH (08:13)
[2017-09-10] MEDS: pantoprazole 40mg Tablet.DR PO SCH (08:13)
[2017-09-10] MEDS: ferrous sulfate 325mg tablet PO SCH ×2 (08:13→19:02)
[2017-09-10] MEDS: carVEDilol 3.125mg tablet PO SCH ×2 (08:13→20:54)
[2017-09-10] MEDS: docusate sod 100mg capsule PO SCH ×2 (08:13→19:11)
[2017-09-10] MEDS: furosemide 40mg tablet PO SCH (08:13)
[2017-09-10] MEDS: lactobacillus rhamnosus 10,000 MMU CELLS/CAPSULE PO SCH ×2 (08:13→19:02)
[2017-09-10] MEDS: heparin, porcine 5000 units/ml vial SQ SCH ×2 (08:14→19:03)
[2017-09-10] MEDS: HYDROcodone/acetaminophen 10/325mg tab PO PRN ×2 (08:14→16:40)
[2017-09-10] MEDS: aspirin 325mg tablet PO SCH (08:14)
[2017-09-10] MEDS: Protein Shake (high protein) 240ml (8oz) cup PO SCH (08:20)
[2017-09-10] MEDS: insulin Lispro (HumaLOG) vial - multi-dose SQ SCH ×3 (09:05→19:05)
[2017-09-10] MEDS: lisinopril 5mg tablet PO SCH ×2 (21:00→22:56)
[2017-09-10] MEDS: insulin glargine (Lantus) pen - multi-dose SQ SCH (21:00)
[2017-09-10] MEDS: insulin regular, human 100 UNIT in normal saline 100ml IV soln 99 ML IV SCH ×2 (22:23)
[2017-09-10] MEDS: epiNEPHrine inj 5 MG, calcium chloride inj. 1,000 MG in normal saline 250ml IV soln 250 ML IV SCH (22:23)
[2017-09-11] VITALS (16 sets, daily range): BP systolic 90–122; BP diastolic 46–91
[2017-09-11] MEDS: gabapentin 100mg capsule PO SCH ×3 (01:38→15:09)
[2017-09-11] MEDS: HYDROcodone/acetaminophen 10/325mg tab PO PRN ×3 (03:37→15:10)
[2017-09-11 03:57] LABS: BASOPHILS # (AUTO) 0.1 X10'3 (0-0.2); BASOPHILS % (AUTO) 0.6 % (0-1); EOSINOPHILS # (AUTO) 0.5 X10'3 (0-0.9); EOSINOPHILS % (AUTO) 5.5 % (0-6); HEMATOCRIT 24.9 % (35.0-45.0); HEMOGLOBIN 8.3 g/dl (12.0-16.0); LYMPHOCYTES # (AUTO) 0.9 X10'3 (1.1-4.8); LYMPHOCYTES % (AUTO) 9.5 % (21-51); MEAN CORPUSCULAR HEMOGLOBIN 29.5 PG (27.0-31.0); MEAN CORPUSCULAR HGB CONC 33.5 % (33.0-36.5); MEAN PLATELET VOLUME 7.9 FL (7.4-10.4); MONOCYTES # (AUTO) 0.8 X10'3 (0-0.9); MONOCYTES % (AUTO) 8.2 % (2-12); NEUTROPHILS # (AUTO) 7.5 X10'3 (1.8-7.7); NEUTROPHILS % (AUTO) 76.2 % (42-75); PLATELET COUNT 229 X10'3 (140-440); RED BLOOD COUNT 2.83 X10'6 (4.20-5.60); RED CELL DISTRIBUTION WIDTH 16.4 % (11.5-14.5); WHITE BLOOD COUNT 9.9 X10'3 (4.5-11.0)
[2017-09-11 04:14] LABS: ALANINE AMINOTRANSFERASE 22 U/L (12-78); ALBUMIN 2.2 G/DL (3.4-5.0); ALBUMIN/GLOBULIN RATIO 0.8 (1.1-1.5); ALKALINE PHOSPHATASE 66 IU/L (46-116); ANION GAP 7 (8-16); ASPARTATE AMINO TRANSFERASE 16 U/L (10-37); BILIRUBIN,TOTAL 0.9 MG/DL (0.1-1.0); BLOOD UREA NITROGEN 40 MG/DL (7-18); BUN/CREATININE RATIO 27.4 (6.6-38.0); CALCIUM 8.4 MG/DL (8.5-10.1); CHLORIDE 108 MMOL/L (99-107); CREATININE 1.46 MG/DL (0.40-0.90); GLUCOSE 88 MG/DL (70-104); SODIUM 140 MMOL/L (135-145); TOTAL CARBON DIOXIDE 24.8 MMOL/L (24-32); TOTAL PROTEIN 5.1 G/DL (6.4-8.2); eGFR 35 ML/MIN
[2017-09-11] MEDS: furosemide 40mg tablet PO SCH (08:00)
[2017-09-11] MEDS: aspirin 325mg tablet PO SCH (08:06)
[2017-09-11] MEDS: docusate sod 100mg capsule PO SCH (08:06)
[2017-09-11] MEDS: ferrous sulfate 325mg tablet PO SCH (08:06)
[2017-09-11] MEDS: pantoprazole 40mg Tablet.DR PO SCH (08:06)
[2017-09-11] MEDS: atorvastatin 10mg tablet PO SCH (08:07)
[2017-09-11] MEDS: heparin, porcine 5000 units/ml vial SQ SCH (08:07)
[2017-09-11] MEDS: lactobacillus rhamnosus 10,000 MMU CELLS/CAPSULE PO SCH (08:07)
[2017-09-11] MEDS: Protein Shake (high protein) 240ml (8oz) cup PO SCH (08:08)
[2017-09-11] MEDS: carVEDilol 3.125mg tablet PO SCH (08:11)
[2017-09-11] MEDS: insulin Lispro (HumaLOG) vial - multi-dose SQ SCH (09:14)
== END 2017-09-11 16:13 | DRG 216 ==
LOC: ER 19:06 → ED HOLD 19:47 → CICU 2S 20:55 → PCU 3S 08-25 09:35 → PAS IN 09-03 07:35 → ICU 2S 09-03 10:05
PROVIDERS: ADMIT Nurse Practitioner; ATTEND Thoracic Surgery (Cardiothoracic Vascular Surgery)
PROC: 5A09357 Assistance with Respiratory Ventilation, Less than 24 Consecutive Hours, Continuous Positive Airway Pressure (ICD-10-PCS; 2017-08-21)
PROC: 5A09357 Assistance with Respiratory Ventilation, Less than 24 Consecutive Hours, Continuous Positive Airway Pressure (ICD-10-PCS; 2017-08-22)
PROC: 30233N1 Transfusion of Nonautologous Red Blood Cells into Peripheral Vein, Percutaneous Approach (ICD-10-PCS; 2017-08-22)
PROC: CB121ZZ Planar Nuclear Medicine Imaging of Lungs and Bronchi using Technetium 99m (Tc-99m) (ICD-10-PCS; 2017-08-22)
PROC: 5A09357 Assistance with Respiratory Ventilation, Less than 24 Consecutive Hours, Continuous Positive Airway Pressure (ICD-10-PCS; 2017-08-23)
PROC: 5A09357 Assistance with Respiratory Ventilation, Less than 24 Consecutive Hours, Continuous Positive Airway Pressure (ICD-10-PCS; 2017-08-24)
PROC: 5A09357 Assistance with Respiratory Ventilation, Less than 24 Consecutive Hours, Continuous Positive Airway Pressure (ICD-10-PCS; 2017-08-25)
PROC: 4A023N8 Measurement of Cardiac Sampling and Pressure, Bilateral, Percutaneous Approach (ICD-10-PCS; 2017-08-27)
PROC: B2111ZZ Fluoroscopy of Multiple Coronary Arteries using Low Osmolar Contrast (ICD-10-PCS; 2017-08-27)
PROC: B2151ZZ Fluoroscopy of Left Heart using Low Osmolar Contrast (ICD-10-PCS; 2017-08-27)
PROC: B5171ZZ Fluoroscopy of Left Subclavian Vein using Low Osmolar Contrast (ICD-10-PCS; 2017-08-27)
PROC: B51V1ZZ Fluoroscopy of Other Veins using Low Osmolar Contrast (ICD-10-PCS; 2017-08-27)
PROC: B41F1ZZ Fluoroscopy of Right Lower Extremity Arteries using Low Osmolar Contrast (ICD-10-PCS; 2017-08-27)
PROC: 02U Heart and Great Vessels, Supplement (ICD-10-PCS; 2017-09-03)
PROC: 06BQ4ZZ Excision of Left Saphenous Vein, Percutaneous Endoscopic Approach (ICD-10-PCS; 2017-09-03)
PROC: 02100Z9 Bypass Coronary Artery, One Artery from Left Internal Mammary, Open Approach (ICD-10-PCS; 2017-09-03)
PROC: 02UG0JZ Supplement Mitral Valve with Synthetic Substitute, Open Approach (ICD-10-PCS; 2017-09-03)
PROC: 30233M1 Transfusion of Nonautologous Plasma Cryoprecipitate into Peripheral Vein, Percutaneous Approach (ICD-10-PCS; 2017-09-03)
PROC: 30233N1 Transfusion of Nonautologous Red Blood Cells into Peripheral Vein, Percutaneous Approach (ICD-10-PCS; 2017-09-03)
PROC: 5A1221Z Performance of Cardiac Output, Continuous (ICD-10-PCS; 2017-09-03)
PROC: B24BZZ4 Ultrasonography of Heart with Aorta, Transesophageal (ICD-10-PCS; 2017-09-03)
PROC: 02L70CK Occlusion of Left Atrial Appendage with Extraluminal Device, Open Approach (ICD-10-PCS; 2017-09-03)
PROC: 02HV33Z Insertion of Infusion Device into Superior Vena Cava, Percutaneous Approach (ICD-10-PCS; 2017-09-03)
PROC: 0B9P0ZZ Drainage of Left Pleura, Open Approach (ICD-10-PCS; 2017-09-03)
PROC: 0B9N0ZZ Drainage of Right Pleura, Open Approach (ICD-10-PCS; 2017-09-03)
PROC: 021309W Bypass Coronary Artery, Four or More Arteries from Aorta with Autologous Venous Tissue, Open Approach (ICD-10-PCS; principal; 2017-09-03 07:41)
PROC: 30233N1 Transfusion of Nonautologous Red Blood Cells into Peripheral Vein, Percutaneous Approach (ICD-10-PCS; 2017-09-06)
DX: I21.4 Non-ST elevation (NSTEMI) myocardial infarction (principal); J96.00 Acute respiratory failure, unspecified whether with hypoxia or hypercapnia; I50.23 Acute on chronic systolic (congestive) heart failure; N17.9 Acute kidney failure, unspecified; I13.0 Hypertensive heart and chronic kidney disease with heart failure and stage 1 through stage 4 chronic kidney disease, or unspecified chronic kidney disease; N18.4 Chronic kidney disease, stage 4 (severe); I69.351 Hemiplegia and hemiparesis following cerebral infarction affecting right dominant side; J98.11 Atelectasis; D62 Acute posthemorrhagic anemia; D63.8 Anemia in other chronic diseases classified elsewhere; Z60.2 Problems related to living alone; E11.22 Type 2 diabetes mellitus with diabetic chronic kidney disease; E11.42 Type 2 diabetes mellitus with diabetic polyneuropathy; E78.00 Pure hypercholesterolemia, unspecified; E87.5 Hyperkalemia; I08.1 Rheumatic disorders of both mitral and tricuspid valves; R74.8 Abnormal levels of other serum enzymes; I25.10 Atherosclerotic heart disease of native coronary artery without angina pectoris; I25.5 Ischemic cardiomyopathy; L89.159 Pressure ulcer of sacral region, unspecified stage; I27.20 Pulmonary hypertension, unspecified; I69.320 Aphasia following cerebral infarction; Z98.49 Cataract extraction status, unspecified eye; Z88.5 Allergy status to narcotic agent; Z88.0 Allergy status to penicillin; Z88.2 Allergy status to sulfonamides; Z79.899 Other long term (current) drug therapy; Z79.4 Long term (current) use of insulin; Z79.82 Long term (current) use of aspirin
CPT/HCPCS: 0232T; 93306; 93312; 93325; 93460; 99285; 36415; 36600; 71045; 76775; 78582; 80048; 80053; 81001; 82330; 82435; 82570; 82803; 82947; 82948; 83036; 83540; 83550; 83605; 83735; 83880; 84100; 84132; 84145; 84156; 84295; 84300; 84484; 84540; 84560; 85014; 85018; 85025; 85347; 85379; 85384; 85610; 85730; 86705; 86709; 86803; 86885; 86900; 86901; 86920; 87070; 87077; 87088; 87186; 88305; 93005; 93308; 93880; 94002; 94003; 94060; 94640; 94660; 94760; 97110; 97116; 97162; 97530; 99152; 99153; A4310; A4353; A4620; A6212; A6213; A6250; A6255; A6257; A6258; A6402; A6449; A7000; A7048; A9539; A9540; C1758; C1760; C1769; J0171; J0690; J0696; J1250; J1265; J1644; J1815; J1940; J1956; J2001; J2060; J2150; J2250; J2270; J2370; J2440; J2704; J2720; J2930; J3010; J3370; J3475; J3480; J3490; J7030; J7120; P9012; P9016; P9045; P9047; Q9967